=== PATIENT | female | born 1995 | race Caucasian/White ===

== ENCOUNTER 2016-09-12 09:56 | Emergency (ER) | payer SELFPAY ==
[2016-09-12 10:24] VITALS: BP 108/50
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
== END 2016-09-12 11:14 | disposition home or self-care (01) ==
LOC: UCEAST 09:56
DX: J02.0 Streptococcal pharyngitis (principal); R30.0 Dysuria; Z87.440 Personal history of urinary (tract) infections; F17.210 Nicotine dependence, cigarettes, uncomplicated
CPT/HCPCS: 81002; 87086; 87651; 99212; G0463

== ENCOUNTER 2016-09-29 12:49 | Emergency (ER) | payer SELFPAY ==
[2016-09-29 14:18] VITALS: BP 109/67
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
== END 2016-09-29 14:33 | disposition home or self-care (01) ==
LOC: UCEAST 12:49
DX: H10.9 Unspecified conjunctivitis (principal); F17.210 Nicotine dependence, cigarettes, uncomplicated
CPT/HCPCS: 99212; G0463

== ENCOUNTER 2016-11-11 21:02 | Emergency (ER) | payer OTHER ==
[2016-11-11] MEDS ORDERED: Acetaminophen TAB* 325 MG PO ONE (23:51)
[2016-11-12 00:01] VITALS: BP 112/78
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
== END 2016-11-12 01:05 | disposition home or self-care (01) ==
LOC: UCEAST 21:02
DX: S06.0X0A Concussion without loss of consciousness, initial encounter (principal); S16.1XXA Strain of muscle, fascia and tendon at neck level, initial encounter; V49.40XA Driver injured in collision with unspecified motor vehicles in traffic accident, initial encounter; Y93.89 Activity, other specified; Y92.410 Unspecified street and highway as the place of occurrence of the external cause; Z32.02 Encounter for pregnancy test, result negative; F41.9 Anxiety disorder, unspecified; F17.210 Nicotine dependence, cigarettes, uncomplicated
CPT/HCPCS: 70450; 72020; 72125; 81003; 84702; 99212; A9270-GY; G0463

== ENCOUNTER 2017-02-05 18:34 | Emergency (ER) | payer OTHER ==
[2017-02-05] MEDS ORDERED: Ketorolac INJ* 60 MG/2 ML VIAL IM ONE (20:27)
[2017-02-05] MEDS ORDERED: Metoclopramide TAB* 10 MG PO ONE (20:27)
[2017-02-05 20:40] VITALS: BP 106/62
[2017-02-05] MEDS ORDERED: Cyclobenzaprine TAB* 10 MG PO ONE (21:04)
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
== END 2017-02-05 21:11 | disposition home or self-care (01) ==
LOC: UCEAST 18:34
DX: M54.2 Cervicalgia (principal); R11.2 Nausea with vomiting, unspecified; G43.909 Migraine, unspecified, not intractable, without status migrainosus; F17.210 Nicotine dependence, cigarettes, uncomplicated
CPT/HCPCS: 96372; 99212; A9270-GY; G0463; J1885

== ENCOUNTER 2017-02-23 19:25 | Emergency (ER) | payer OTHER ==
[2017-02-23] MEDS ORDERED: Ondansetron INJ* 2 MG/ML VIAL IV ONE (20:01)
[2017-02-23] MEDS ORDERED: NS 0.9% 1000 ML* 1,000 ML IV ONE (20:01)
[2017-02-23] MEDS ORDERED: diPHENhydraMINE IV* 50 MG/ML 1 ml VIAL (BENADRYL) IV ONE (20:01)
[2017-02-23] MEDS ORDERED: Diazepam SYRINGE* 5 MG/ML SYRINGE IV ONE (20:02)
[2017-02-23] MEDS ORDERED: Ketorolac INJ* 30 MG/ML 1 ML VIAL IV PUSH ONE (20:03)
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
[2017-02-23] MEDS ORDERED: Diazepam TAB(*) 5 MG PO ONE (22:53)
[2017-02-23 23:32] VITALS: BP 110/56
== END 2017-02-23 23:12 | disposition home or self-care (01) ==
LOC: ED 19:25
DX: G43.909 Migraine, unspecified, not intractable, without status migrainosus (principal); M62.838 Other muscle spasm; F07.81 Postconcussional syndrome; G44.309 Post-traumatic headache, unspecified, not intractable; Z87.440 Personal history of urinary (tract) infections; F41.9 Anxiety disorder, unspecified; F32.9 Major depressive disorder, single episode, unspecified; F17.210 Nicotine dependence, cigarettes, uncomplicated
CPT/HCPCS: 96361; 96374; 96375; 99282; A9270-GY; J1200; J1885; J2405; J3360

== ENCOUNTER 2017-04-08 03:07 | Emergency (ER) | payer OTHER ==
[2017-04-08] MEDS ORDERED: NS 0.9% 1000 ML* 2,000 ML IV ONE (03:55)
[2017-04-08] MEDS ORDERED: Ondansetron INJ* 2 MG/ML VIAL IV ONE (04:05)
[2017-04-08] MEDS ORDERED: LORazepam INJ* 2 MG/ML 1 ML VIAL IV ONE (04:05)
[2017-04-08] MEDS ORDERED: Ketorolac INJ* 30 MG/ML 1 ML VIAL IV ONE (04:05)
[2017-04-08] MEDS ORDERED: diPHENhydraMINE IV* 50 MG/ML 1 ml VIAL (BENADRYL) IV ONE (04:05)
[2017-04-08 04:49] LABS: EBV Response NO
[2017-04-08 04:55] LABS: Hematocrit 36 % (35-47); Mean Corpuscular HGB Conc 33 g/dl (31-36); Mean Corpuscular Hemoglobin 32 pg (27-31); Mean Corpuscular Volume 96 fL (80-97); Mean Platelet Volume 8 um3 (7.4-10.4); Red Blood Count 3.76 10^6/ul (4.0-5.4); Red Cell Distribution Width 13 % (10.5-15); White Blood Count 6.2 10^3/ul (3.5-10.8)
[2017-04-08 05:07] LABS: Mono Internal Control QC Line Present
[2017-04-08 05:08] LABS: Manual Entry Verification CAR0052
[2017-04-08 05:11] LABS: ALT 15 U/L (7-52); AST 16 U/L (13-39); Albumin 4.1 g/dL (3.2-5.2); Alkaline Phosphatase 25 U/L (34-104); Anion Gap 5 mmol/L (2-11); BUN/Creatinine Ratio 13.7 (8-20); Blood Urea Nitrogen 10 mg/dL (6-24); C Reactive Protein < 1.00 mg/L (< 5.00); CO2 Carbon Dioxide 25 mmol/L (22-32); Calcium 8.7 mg/dL (8.6-10.3); Chloride 106 mmol/L (101-111); EGFR African American 128.2 (>60); EGFR Non-African American 99.7 (>60); Globulin 2.4 g/dL (2-4); Glucose 90 mg/dL (70-100); Potassium 3.5 mmol/L (3.5-5.0); Sodium 136 mmol/L (133-145); Total Protein 6.5 g/dL (6.4-8.9)
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
[2017-04-08 06:56] VITALS: BP 119/75
== END 2017-04-08 07:12 | disposition home or self-care (01) ==
LOC: ED 03:07
DX: M54.2 Cervicalgia (principal); R51 Headache; F17.210 Nicotine dependence, cigarettes, uncomplicated
CPT/HCPCS: 36415; 80053; 84702; 85025; 86140; 86308; 99282; J1200; J1885; J2060; J2405

== ENCOUNTER 2017-08-01 21:54 | Emergency (ER) | payer OTHER ==
[2017-08-01] MEDS ORDERED: diPHENhydraMINE IV* 50 MG/ML 1 ml VIAL (BENADRYL) IV ONE (22:39)
[2017-08-01] MEDS ORDERED: Ketorolac INJ* 30 MG/ML 1 ML VIAL IV PUSH ONE (22:39)
[2017-08-01] MEDS ORDERED: PROCHLORPERAZINE INJ 5 MG/ML 2 ML VIAL IV ONE (22:39)
[2017-08-01] MEDS ORDERED: NS 0.9% 1000 ML* 1,000 ML IV ONE (22:40)
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
[2017-08-01 23:34] LABS: ABS Basophils 0 10^3/ul (0-0.2); ABS Eosinophils 0 10^3/ul (0-0.6); ABS Lymphocytes 2.3 10^3/ul (1.0-4.8); ABS Monocytes 0.5 10^3/ul (0-0.8); ABS Neutrophils 4.8 10^3/ul (1.5-7.7); ABS Nucleated RBC 0 10^3/ul; Eosinophil % 0.2 % (0-6); Hematocrit 36 % (35-47); Hemoglobin 12.3 g/dl (12.0-16.0); Lymphocyte % 30.2 % (25-47); Mean Corpuscular HGB Conc 34 g/dl (31-36); Mean Corpuscular Hemoglobin 32 pg (27-31); Mean Corpuscular Volume 95 fL (80-97); Mean Platelet Volume 8 um3 (7.4-10.4); Nucleated Red Blood Cells % 0; Platelet Count 308 10^3/ul (150-450); Red Blood Count 3.85 10^6/ul (4.0-5.4); Red Cell Distribution Width 13 % (10.5-15); White Blood Count 7.7 10^3/ul (3.5-10.8)
[2017-08-01 23:54] LABS: EGFR Non-African American 108.2 (>60)
[2017-08-02 00:58] VITALS: BP 118/63
== END 2017-08-02 00:55 | disposition home or self-care (01) ==
LOC: ED 21:54
DX: R51 Headache (principal); R11.0 Nausea; F17.210 Nicotine dependence, cigarettes, uncomplicated
CPT/HCPCS: 36415; 80053; 84702; 85025; 96374; 96375; J0780; J1200; J1885

== ENCOUNTER 2017-08-12 17:46 | Emergency (ER) | payer MEDICAID, OTHER ==
[2017-08-12 18:02] VITALS: BP 109/71
--- NOTE | 2017-08-12 18:38 | UC ---
Rico Santana Gabriel, scribed for Faye Jara MD on 08/12/17 at 1832 . Throat Pain/Nasal Roverto HPI - HPI Summary HPI Summary: This patient is a 21 year old F [place] [facility] [place] chief complaint of sinus congestion that began in the beginning of July. The symptoms resolved but returned after she had a migraine and was seen in the ED 10 days ago. The patient rates the pain 7/10 in severity. Patient reports fatigue, cough, sore throat, TA, brown productive cough, pain behind her eyes, and chills. Patient denies ear pain but feels ear congestion. No nausea, vomiting. PT has taken Mucinex and APAP with relief. PT states feels better with shower. Patients medication reviewed during this visit. - History of Current Complaint Chief Complaint: UCRespiratory Stated Complaint: COUGH Time Seen by Provider: 08/12/17 18:10 Hx Obtained From: Patient Hx Last Menstrual Period: 07/20/17 Onset/Duration: Lasting Days - 10, Still Present Severity: Moderate Pain Intensity: 7 Pain Scale Used: 0-10 Numeric Cough: Productive Associated Signs & Symptoms: Positive: Other - fatigue, sinus congestion, cough , sore throat, TA, brown productive cough, pain behind her eyes, chills, - Allergies/Home Medications Allergies/Adverse Reactions: Allergies Allergy/AdvReac Type Severity Reaction Status Date / Time No Known Allergies Allergy Verified 08/12/17 18:02 Home Medications: Home Medications Iud* 08/12/17 [History] LORazepam TAB(*) [Ativan 1 MG TAB (*)] PRN 08/12/17 [History] Phenylephrine-Chlorpheniramine [Alyssa-Peralta Plus Cold &] 1 cap PO PRN 08/12/17 [History] PMH/Surg Hx/FS Hx/Imm Hx Neurological History: Migraine Other History Of: Negative For: HIV, Hepatitis B, Hepatitis C, Anticoagulant Therapy - Surgical History Surgical History: Yes Surgery Procedure, Year, and Place: tongue tied as a - had scar revision in 7th grade X2 - Family History Known Family History: Positive: Hypertension, Diabetes, Other - family hx of kidney stones Negative: Renal Disease, Respiratory Disease, Seizure Disorder Family History: R & N/C - Social History Occupation: Employed Full-time Lives: Dormitory/Roommates Alcohol Use: Occasionally Alcohol Amount: 2-3 times/ week Substance Use Type: None Smoking Status (MU): Former Smoker Type: Cigarettes Amount Used/How Often: 4 CIG/DAY Have You Smoked in the Last Year: Yes Household Exposure Type: Cigarettes - Immunization History Most Recent Influenza Vaccination: none Review of Systems Constitutional: Chills, Fatigue ENT: Sore Throat, Sinus Congestion Respiratory: Cough Neurological: Headache - with eye pain All Other Systems Reviewed And Are Negative: Yes Physical Exam Triage Information Reviewed: Yes Appearance: Well-Appearing, No Pain Distress, Well-Nourished Vital Signs: Initial Vital Signs Temp 99 F 08/12/17 17:56 Pulse 107 08/12/17 17:56 Resp 16 08/12/17 17:56 BP 109/71 08/12/17 17:56 Pulse Ox 99 08/12/17 17:56 Eye Exam: Normal Eyes: Positive: Conjunctiva Clear ENT Exam: Normal ENT: Positive: Hearing grossly normal, Pharynx normal, Nasal congestion, TM dull , Sinus tenderness - maxillary and frontal sinus L>R, Other - + mild fluid left TM no erythema turbinates inflammed and boggy + pnd uvula midline no exudate , no erythema. Negative: Pharyngeal erythema, TMs normal, Tonsillar swelling, Tonsillar exudate Dental Exam: Normal Neck exam: Normal Neck: Positive: Supple, Nontender Respiratory Exam: Normal Respiratory: Positive: Chest non-tender, Lungs clear, Normal breath sounds, No respiratory distress, No accessory muscle use Cardiovascular Exam: Normal Cardiovascular: Positive: RRR, No Murmur, Pulses Normal Abdominal Exam: Normal Abdomen Description: Positive: Nontender, No Organomegaly Musculoskeletal Exam: Normal Neurological Exam: Normal Psychological Exam: Normal Skin Exam: Normal Throat Pain/Nasal Course/Dx - Course Course Of Treatment: pt with progressive sinus congestion, green secretions, cough, fatigue. facial pressure. + fluid left TM. turbinates inflammed and boggy with sinus discomfort. Rx abx, flonase. humidify air. motrin/apap. hydrate. secretion precaution. pt requested diflucan for yeast - Differential Dx/Diagnosis Provider Diagnoses: sinusitis Discharge - Discharge Plan Condition: Stable Disposition: HOME Prescriptions: Amoxicillin PO (*) [Amoxicillin 875 MG (*)] 875 mg PO BID #20 tab Fluconazole [Diflucan 150 MG (NF)] 150 mg PO ONCE #1 tab Fluticasone NASAL * [Flonase *] 2 spray BOTH NARES DAILY #1 spray Patient Education Materials: Sinusitis (ED) Referrals: Pradeep Lopez MD [Primary Care Provider] - Additional Instructions: - Stay well hydrated. Drink plenty of non-alcoholic, non-caffinated beverages - Take antibiotics 2 times a day as prescribed - use nasal spray as instructed - Okay to use over the counter medication for decongestant - After you have been on antibiotics for 2 days - change your toothbrush and your pillowcase. These infections are spread by secrtions - do NOT share eating or drinking utensils - clean items you share with other people such as iphone, computer mouse, TV remote, etc - Alternate ibuprofen (Advil, motrin) 600mg and tylenol eveyry 3 hours for pain or fever. Do NOT take ibuprofen if you are taking Naprosyn - the doctor has prescribed a treatment for yeast infection if you develop this from the antibiotic - humidify the air in the room where you sleep to help with congestion - Call your doctor on Friday to schedule a follow-up appointment. Call your doctor or return with questions or concerns The documentation as recorded by the Rico munoz Gabriel accurately reflects the service I personally performed and the decisions made by , Faye Jara MD.
== END 2017-08-12 18:35 | disposition home or self-care (01) ==
LOC: UCEAST 17:46
DX: J32.9 Chronic sinusitis, unspecified (principal); G43.909 Migraine, unspecified, not intractable, without status migrainosus; Z87.891 Personal history of nicotine dependence
CPT/HCPCS: 99212; G0463

== ENCOUNTER 2017-09-02 21:52 | Emergency (ER) | payer MEDICAID ==
[2017-09-03] MEDS ORDERED: diPHENhydraMINE IV* 50 MG/ML 1 ml VIAL (BENADRYL) IV ONE (01:15)
[2017-09-03] MEDS ORDERED: Ketorolac INJ* 30 MG/ML 1 ML VIAL IV PUSH ONE (01:15)
[2017-09-03] MEDS ORDERED: Ondansetron INJ* 2 MG/ML VIAL IV ONE (01:15)
[2017-09-03] MEDS ORDERED: NS 0.9% 1000 ML* 1,000 ML IV ONE (01:15)
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
[2017-09-03] MEDS ORDERED: Morphine INJ* 2 MG/ML 1 ML SYRINGE (TWO MG - NEW SYRINGE VERSION) IV ONE (02:57)
[2017-09-03 03:03] VITALS: BP 100/54
[2017-09-03] MEDS ORDERED: Morphine INJ* 2 MG/ML 1 ML CARPUJECT IV ONE (04:00)
== END 2017-09-03 03:39 | disposition home or self-care (01) ==
LOC: ED 21:52
DX: G43.909 Migraine, unspecified, not intractable, without status migrainosus (principal); Z87.891 Personal history of nicotine dependence
CPT/HCPCS: 96360; 96361; 96374; 96375; 99284; J1200; J1885; J2270; J2405

== ENCOUNTER 2017-09-24 02:39 | Emergency (ER) | payer OTHER ==
[2017-09-24] MEDS ORDERED: Metoclopramide IV* 5 MG/ML 2 ML VIAL IV SLOW PU ONE (02:55)
[2017-09-24] MEDS ORDERED: Ketorolac INJ* 30 MG/ML 1 ML VIAL IV PUSH ONE (02:55)
[2017-09-24] MEDS ORDERED: diPHENhydraMINE IV* 50 MG/ML 1 ml VIAL (BENADRYL) IV ONE (02:55)
[2017-09-24] MEDS ORDERED: NS 0.9% 1000 ML* 1,000 ML IV ONE (02:56)
[2017-09-24] MEDS ORDERED: LORazepam INJ* 2 MG/ML 1 ML VIAL IV PUSH ONE (02:56)
[2017-09-24 05:00] VITALS: BP 111/74
--- NOTE | 2017-10-14 06:13 | ED ---
Felecia Santana Rebecca, scribed for Kenneth Raymundo MD on 09/24/17 at 0257 . Headache - HPI Summary HPI Summary: Pt is a 21 y/o F who presents to ED c/o TA. 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 Currently, pain is severe, ranked 9/10. 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 Additionally c/o nausea and photophobia. PMHx anxiety, migraines, and depression. Pt takes amitriptyline as a prophylaxis and sumatriptan and Xanax as needed to treat migraines. Tonight, the pt has taken 150 mg Sumatriptan without relief. She was [place] [facility] [place] ago for similar symptoms and her mother reports the pt experiences migraines often. LNMP is now. - History Of Current Complaint Chief Complaint: EDHeadache Stated Complaint: HEADACHE Hx Obtained From: Patient Hx Last Menstrual Period: 07/20/17 Onset/Duration: Started hours ago - 1 hour, Still Present Currently Pain Is: Current Pain Scale(0-10)= - 9/10, Severe Character: Migraine Aggravating Factor: Bright Lights Allevating Factors: Nothing Associated Signs And Symptoms: Nausea Related History: Similar Episode/DX As: - Prior migraines, seen 3 weeks ago - Allergies/Home Medications Allergies/Adverse Reactions: Allergies Allergy/AdvReac Type Severity Reaction Status Date / Time diphenhydramine Allergy Unknown See Comment Verified 09/24/17 03:17 [From Benadryl] PMH/Surg Hx/FS Hx/Imm Hx Endocrine/Hematology History: Denies: Hx Anticoagulant Therapy, Hx Blood Disorders, Hx Diabetes, Hx Thyroid Disease, Hx Anemia, Hx Unexplained Bleeding Cardiovascular History: Denies: Hx Aneurysm, Hx Hypertension, Hx Pacemaker/ICD Respiratory History: Denies: Hx Asthma, Hx Chronic Obstructive Pulmonary Disease (COPD) GI History: Denies: Hx Ulcer History: Reports: Other Problems/Disorders - Recurrent UTI Sensory History: Denies: Hx Hearing Aid Neurological History: Reports: Hx Migraine Psychiatric History: Reports: Hx Anxiety, Hx Depression Denies: Hx Panic Disorder - Surgical History Surgery Procedure, Year, and Place: tongue tied as a - had scar revision in 7th grade X2 Infectious Disease History: No Infectious Disease History: Denies: Hx Hepatitis, Hx Human Immunodeficiency Virus (HIV), Traveled Outside the [place] in Last 30 Days - Family History Known Family History: Positive: Hypertension, Diabetes, Other - family hx of kidney stones Negative: Renal Disease, Respiratory Disease, Seizure Disorder - Social History Alcohol Use: Occasionally Alcohol Amount: 2-3 times/ week Hx Substance Use: No Substance Use Type: Reports: None Hx Tobacco Use: Yes Smoking Status (MU): Former Smoker Type: Cigarettes Amount Used/How Often: 4 CIG/DAY Have You Smoked in the Last Year: Yes Review of Systems Positive: Photophobia Positive: Nausea Positive: Headache All Other Systems Reviewed And Are Negative: Yes Physical Exam - Summary Physical Exam Summary: VITAL SIGNS: Reviewed. GENERAL: ~Patient is a well-developed and nourished female who is in the position on the stretcher. Patient is not in any acute respiratory distress. HEAD AND FACE: No signs of trauma. No ecchymosis, hematomas or skull depressions. No sinus tenderness. EYES: PERRLA, EOMI x 2, No injected conjunctiva, no nystagmus. Photophobia. EARS: Hearing grossly intact. Ear canals and tympanic membranes are within normal limits. MOUTH: Oropharynx within normal limits. NECK: Supple, trachea is midline, no adenopathy, no JVD, no carotid bruit, no c- spine tenderness, neck with full ROM. CHEST: Symmetric, no tenderness at palpation LUNGS: Clear to auscultation bilaterally. No wheezing or crackles. CVS: Regular rate and rhythm, S1 and S2 present, no murmurs or gallops appreciated. EXTREMITIES: FROM in all major joints, no edema, no cyanosis or clubbing. NEURO: Alert and oriented x 3. No acute neurological deficits. Speech is normal and follows commands. SKIN: Dry and warm Triage Information Reviewed: Yes Vital Signs On Initial Exam: Initial Vitals Temp Pulse Resp BP Pulse Ox 97.6 F 69 16 130/60 99 09/24/17 02:41 09/24/17 02:41 09/24/17 02:41 09/24/17 02:41 09/24/17 02:41 Vital Signs Reviewed: Yes Diagnostics - Vital Signs Vital Signs Temp Pulse Resp BP Pulse Ox 09/24/17 02:41 97.6 F 69 16 130/60 99 - Laboratory Lab Statement: Any lab studies that have been ordered have been reviewed, and results considered in the medical decision making process. Re-Evaluation - Re-Evaluation First Eval Re-Evaluation Time: 04:47 Change: Improved Comment: Pt's sx have improved. Discussed D/C plan with the pt who understands and agrees. Headache Course/Dx - Course Assessment/Plan: Pt is a 21 y/o F who presents to ED c/o migraine TA for 1 hour , currently severe, ranked 9/10. 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 Additionally c/o nausea and photophobia. PMHx anxiety, migraines , and depression. Pt takes amitriptyline as a prophylaxis and sumatriptan and Xanax as needed to treat migraines. Tonight, the pt has taken 150 mg Sumatriptan without relief. She was [place] [facility] [place] 3 weeks ago for similar symptoms and her mother reports the pt experiences migraines often. LNMP is now. In the ED course, pt received Toradol, Reglan, Ativan and fluids. She declined Benadryl. Pt will be D/C to home with Dx of migriane with a followup with her PCP. She understands and agrees. Allergy noted. - Diagnoses Provider Diagnoses: Migraine Discharge - Sign-Out/Discharge Documenting (check all that apply): Discharge - Discharge Plan Condition: Stable Disposition: HOME Patient Education Materials: Migraine Headache (ED) Forms: *Work Release Referrals: Pradeep Lopez MD [Primary Care Provider] - 3 Days Additional Instructions: RETURN TO EMERGENCY DEPARTMENT FOR ANY NEW OR WORSENING SYMPTOMS - Billing Disposition and Condition Condition: STABLE Disposition: HOME The documentation as recorded by the Felecia munoz Rebecca accurately reflects the service I personally performed and the decisions made by me, Kenneth Raymundo MD.
== END 2017-09-24 05:01 | disposition home or self-care (01) ==
LOC: ED 02:39
DX: G43.909 Migraine, unspecified, not intractable, without status migrainosus (principal); Z87.891 Personal history of nicotine dependence
CPT/HCPCS: 96374; 96375; 99283; J1885; J2060; J2765

== ENCOUNTER 2017-12-08 07:56 | Emergency (ER) | payer OTHER ==
--- OUTSIDE RECORDS SUMMARY | 2017-12-08 08:44 | XMS REPORT ---
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 Heart Rate 80 /min Body Temperature 98.6 F Height 61 inches 5'1" Weight 104.00 lb BMI (Body Mass Index) 19.6 kg/m2 Body Mass Index Percentile 38 % Weight Percentile 17th Height Percentile 11 % 02/11/2011 BP Systolic 100 mmHg BP Diastolic 70 mmHg Heart Rate 68 /min Body Temperature 99.0 F Height 61 inches 5'1" Weight 108.00 lb BMI (Body Mass Index) 20.4 kg/m2 Body Mass Index Percentile 48 % Weight Percentile 26th Height Percentile 11 % 12/25/2010 BP Systolic 96 mmHg BP Diastolic 60 mmHg Heart Rate 68 /min Respiratory Rate 15 /min Height 61 inches 5'1" Weight 105.00 lb BMI (Body Mass Index) 19.8 kg/m2 Body Mass Index Percentile 41 % Weight Percentile 20th Height Percentile 11 % 12/20/2010 BP Systolic 106 mmHg BP Diastolic 70 mmHg Heart Rate 64 /min Height 61 inches 5'1" Weight 105.00 lb BMI (Body Mass Index) 19.8 kg/m2 Body Mass Index Percentile 42 % Weight Percentile 21st Height Percentile 11 % 12/04/2010 BP Systolic 100 mmHg BP Diastolic 54 mmHg Heart Rate 84 /min Height 61 inches 5'1" Weight 104.00 lb BMI (Body Mass Index) 19.6 kg/m2 Body Mass Index Percentile 39 % Weight Percentile 19th Height Percentile 12 % 06/25/2010 BP Systolic 110 mmHg BP Diastolic 72 mmHg Heart Rate 68 /min Body Temperature 98.6 F Height 61 inches 5'1" Weight 110.00 lb BMI (Body Mass Index) 20.8 kg/m2 Body Mass Index Percentile 57 % Weight Percentile 35th Height Percentile 12 % 05/03/2010 BP Systolic 110 mmHg BP Diastolic 60 mmHg Heart Rate 64 /min Body Temperature 99.4 F Respiratory Rate 16 /min Height 61 inches 5'1" Weight 110.00 lb BMI (Body Mass Index) 20.8 kg/m2 Body Mass Index Percentile 58 % Weight Percentile 37th Height Percentile 13 % Right Visual Acuity Distance 20/40 Left Visual Acuity Distance 20/20 04/12/2010 BP Systolic 110 mmHg BP Diastolic 70 mmHg Heart Rate 68 /min Body Temperature 99.0 F Weight 111.00 lb Weight Percentile 39th 08/15/2009 BP Systolic 90 mmHg BP Diastolic 50 mmHg Heart Rate 72 /min Weight 110.00 lb Weight Percentile 44th Height Percentile 3 % 08/09/2009 BP Systolic 104 mmHg BP Diastolic 70 mmHg Heart Rate 84 /min Weight 110.00 lb Weight Percentile 44th 04/29/2009 BP Systolic 108 mmHg BP Diastolic 58 mmHg Body Temperature 98.2 F Height 61 inches 5'1" Weight 102.00 lb BMI (Body Mass Index) 19.3 kg/m2 Body Mass Index Percentile 46 % Weight Percentile 32nd Height Percentile 17 % 04/25/2009 BP Systolic 106 mmHg BP Diastolic 80 mmHg Heart Rate 72 /min Body Temperature 98.8 F Height 61 inches 5'1" Weight 104.00 lb BMI (Body Mass Index) 19.6 kg/m2 Body Mass Index Percentile 51 % Weight Percentile 36th Height Percentile 17 % 04/03/2009 Heart Rate 88 /min Body Temperature 98.6 F Weight 104.00 lb Weight Percentile 37th 03/14/2009 BP Systolic 90 mmHg BP Diastolic 60 mmHg Body Temperature 98.4 F Weight 102.00 lb Weight Percentile 34th 10/03/2008 BP Systolic 102 mmHg BP Diastolic 62 mmHg Heart Rate 84 /min Body Temperature 97.2 F Height 61 inches 5'1" Weight 101.00 lb BMI (Body Mass Index) 19.1 kg/m2 Body Mass Index Percentile 48 % Weight Percentile 38th 09/20/2008 BP Systolic 102 mmHg BP Diastolic 60 mmHg Heart Rate 76 /min Body Temperature 99.7 F Height 61 inches 5'1" Weight 102.00 lb BMI (Body Mass Index) 19.3 kg/m2 Body Mass Index Percentile 51 % Weight Percentile 40th Height Percentile 23 % 08/16/2008 BP Systolic 96 mmHg BP Diastolic 64 mmHg Heart Rate 64 /min Weight 102.00 lb Weight Percentile 41st 05/03/2008 Body Temperature 98.7 F Weight 110.00 lb Weight Percentile 61st 03/31/2008 BP Systolic 104 mmHg BP Diastolic 60 mmHg Heart Rate 72 /min Body Temperature 99.4 F Weight 100.00 lb Weight Percentile 43rd 01/26/2008 BP Systolic 90 mmHg BP Diastolic 60 mmHg Heart Rate 72 /min Height 61 inches 5'1" Weight 96.00 lb BMI (Body Mass Index) 18.1 kg/m2 Body Mass Index Percentile 41 % Weight Percentile 38th Height Percentile 35 % 12/08/2007 BP Systolic 90 mmHg BP Diastolic 60 mmHg Heart Rate 76 /min Body Temperature 99.4 F Height 61 inches 5'1" Weight 99.00 lb BMI (Body Mass Index) 18.7 kg/m2 Body Mass Index Percentile 50 % Weight Percentile 46th Height Percentile 38 % 10/13/2007 BP Systolic 92 mmHg BP Diastolic 60 mmHg Body Temperature 98.3 F Weight 102.00 lb Weight Percentile 55th 12/24/2006 BP Systolic 116 mmHg BP Diastolic 70 mmHg Heart Rate 78 /min Height 60.25 inches 5'0.25" Weight 88.00 lb BMI (Body Mass Index) 17.0 kg/m2 Body Mass Index Percentile 34 % Weight Percentile 42nd Height Percentile 60 % 04/03/2006 BP Systolic 96 mmHg BP Diastolic 60 mmHg Heart Rate 64 /min Body Temperature 98.4 F Weight 91.00 lb Weight Percentile 64th 12/20/2005 BP Systolic 92 mmHg BP Diastolic 50 mmHg Heart Rate 60 /min Height 59 inches 4'11" Weight 89.00 lb BMI (Body Mass Index) 18.0 kg/m2 Body Mass Index Percentile 58 % Weight Percentile 66th Height Percentile 79 % 08/02/2005 Body Temperature 99.1 F Weight 82.00 lb Weight Percentile 59th 04/05/2005 BP Systolic 102 mmHg BP Diastolic 58 mmHg Heart Rate 80 /min Body Temperature 98.4 F Weight 77.00 lb Weight Percentile 55th 11/13/2004 BP Systolic 82 mmHg BP Diastolic 50 mmHg Heart Rate 88 /min Height 55.5 inches 4'7.50" Weight 74.00 lb BMI (Body Mass Index) 16.9 kg/m2 Body Mass Index Percentile 52 % Weight Percentile 57th Height Percentile 70 % 08/28/2004 BP Systolic 118 mmHg BP Diastolic 80 mmHg Heart Rate 84 /min Weight 68.00 lb Weight Percentile 45th 04/03/2004 Body Temperature 99.0 F Weight 65.00 lb Weight Percentile 46th 12/07/2003 BP Systolic 98 mmHg BP Diastolic 58 mmHg Heart Rate 80 /min Body Temperature 97.8 F Height 51 inches 4'3" Weight 62.00 lb BMI (Body Mass Index) 16.8 kg/m2 Weight Percentile 45th Height Percentile 30 % 08/30/2003 Body Temperature 98.5 F Weight 58.00 lb Weight Percentile 38th 01/11/2003 BP Systolic 108 mmHg BP Diastolic 60 mmHg Heart Rate 80 /min Height 49.75 inches 4'1.75" Weight 52.00 lb BMI (Body Mass Index) 14.8 kg/m2 Weight Percentile 30th Height Percentile 40 % Right Visual Acuity Distance 20/20 Left Visual Acuity Distance 20/20 Color Passed 09/15/2002 Body Temperature 97.6 F Weight 53.00 lb Weight Percentile 60th 06/25/2002 Body Temperature 98.7 F Weight 50.00 lb Weight Percentile 47th 05/11/2002 Body Temperature 99.9 F Weight 50.00 lb Weight Percentile 47th 01/05/2002 BP Systolic 110 mmHg BP Diastolic 60 mmHg Heart Rate 84 /min Height 46.5 inches 3'10.50" Weight 50.00 lb BMI (Body Mass Index) 16.6 kg/m2 Weight Percentile 47th Height Percentile 31 % Right Visual Acuity Distance 20/20 12/23/2000 BP Systolic 102 mmHg BP Diastolic 70 mmHg Heart Rate 88 /min Height 44 inches 3'8" Weight 44.00 lb BMI (Body Mass Index) 16.0 kg/m2 Height Percentile 29 % 12/26/1999 BP Systolic 100 mmHg BP Diastolic 60 mmHg Height 41.75 inches 3'5.75" Weight 38.00 lb BMI (Body Mass Index) 15.9 kg/m2 Height Percentile 31 % Results Test Date Test Result H/L Range Note Comp Metabolic Panel 08/01/2017 Sodium 136 mmol/L 133-145 Potassium 3.2 mmol/L Low 3.5-5.0 Chloride 99 mmol/L Low 101-111 Co2 Carbon Dioxide 30 mmol/L 22-32 Anion Gap 7 mmol/L 2-11 Glucose 97 mg/dL 70-100 Blood Urea Nitrogen 15 mg/dL 6-24 Creatinine 0.68 mg/dL 0.51-0.95 BUN/Creatinine Ratio 22.1 High 8-20 Calcium 9.5 mg/dL 8.6-10.3 Total Protein 7.0 g/dL 6.4-8.9 Albumin 4.2 g/dL 3.2-5.2 Globulin 2.8 g/dL 2-4 Albumin/Globulin Ratio 1.5 1-3 Total Bilirubin 0.40 mg/dL 0.2-1.0 Alkaline Phosphatase 31 U/L Low 34-104 Alt 34 U/L 7-52 Ast 39 U/L 13-39 Egfr Non- 108.2 >60 Egfr 139.1 >60 1 Laboratory test finding 08/01/2017 HCG < 0.60 mIU/mL 2 CBC With Differential/Platelet 06/27/2017 WBC 6.0 x10E3/uL 3.4-10.8 3 RBC 3.80 x10E6/uL 3.77-5.28 3 Hemoglobin 12.0 g/dL 11.1-15.9 3 Hematocrit 36.5 % 34.0-46.6 3 MCV 96 fL 79-97 3 MCH 31.6 pg 26.6-33.0 3 MCHC 32.9 g/dL 31.5-35.7 3 RDW 13.2 % 12.3-15.4 3 Platelets 272 x10E3/uL 150-379 3 Neutrophils 63 % Not Estab. 3 Lymphs 29 % Not Estab. 3 Monocytes 6 % Not Estab. 3 Eos 1 % Not Estab. 3 Basos 1 % Not Estab. 3 Immature Cells TNP 3 Neutrophils (Absolute) 3.8 x10E3/uL 1.4-7.0 3 Lymphs (Absolute) 1.8 x10E3/uL 0.7-3.1 3 Monocytes(Absolute) 0.3 x10E3/uL 0.1-0.9 3 Eos (Absolute) 0.0 x10E3/uL 0.0-0.4 3 Baso (Absolute) 0.0 x10E3/uL 0.0-0.2 3 Immature Granulocytes 0 % Not Estab. 3 Immature Grans (Abs) 0.0 x10E3/uL 0.0-0.1 3 NRBC TNP 3 Hematology Comments: TNP 3 Metabolic Panel (14), Comprehensive 06/27/2017 Glucose, Serum 70 mg/dL 65 -99 3 BUN 11 mg/dL 6-20 3 Creatinine, Serum 1.01 mg/dL High 0.57-1.00 3 eGFR If NonAfricn Am 79 mL/min/1.73 >59 3 eGFR If Africn Am 91 mL/min/1.73 >59 3 BUN/Creatinine Ratio 11 9-23 3 Sodium, Serum 140 mmol/L 134-144 3 Potassium, Serum 4.5 mmol/L 3.5-5.2 3 Chloride, Serum 99 mmol/L 96-106 3 Carbon Dioxide, Total 23 mmol/L 18-29 3 Calcium, Serum 9.6 mg/dL 8.7-10.2 3 Protein, Total, Serum 7.5 g/dL 6.0-8.5 3 Albumin, Serum 4.8 g/dL 3.5-5.5 3 Globulin, Total 2.7 g/dL 1.5-4.5 3 A/G Ratio 1.8 1.2-2.2 3 Bilirubin, Total 0.7 mg/dL 0.0-1.2 3 Alkaline Phosphatase, S 32 IU/L Low 39-117 3 Ast (Sgot) 42 IU/L High 0-40 3 Alt (SGPT) 19 IU/L 0-32 3 Laboratory test finding 11/12/2016 Poc , Urine Negative Negative 4 Poc Urinalysis 11/12/2016 Poc Glucose, Urine Negative Negative Poc Bilirubin, Urine Negative Negative Poc Ketone, Urine Negative Negative Poc Specific [place], Urine 1.020 1.010-1.030 Poc Blood, Urine Trace-intact Negative Poc pH, Urine 7.5 5-9 Poc Protein, Urine Negative Negative Poc Urobilinogen, Urine 0.2 Negative Poc Nitrite, Urine Negative Negative Poc Leukocytes, Urine Negative Negative Poc Color, Urine Light yellow Poc Clarity, Urine Cloudy 5 Laboratory test 09/12/2016 Urine Culture And SEE RESULT BELOW 6, 7 finding Sensitivities Laboratory test 09/12/2016 Rapid Strep Molecular POSITIVE Negative 8 finding Urinalysis Profile 10/26/2015 Urine Color Yellow Urine Appearance Clear Urine Specific [place] 1.011 1.010-1.030 Urine pH 6.0 5-9 Urine Urobilinogen Negative Negative Urine Ketones 1+ Negative Urine Protein Negative Negative Urine Leukocytes Negative Negative Urine Blood Negative Negative Urine Nitrite Negative Negative Urine Bilirubin Negative Negative Urine Glucose Negative Negative Laboratory test finding 10/26/2015 Lactic Acid 0.6 mmol/L 0.5-2.0 9 Comp Metabolic Panel 10/26/2015 Sodium 133 mmol/L 133-145 Potassium 3.7 mmol/L 3.5-5.0 Chloride 101 mmol/L 101-111 Co2 Carbon Dioxide 25 mmol/L 22-32 Anion Gap 7 mmol/L 2-11 Glucose 85 mg/dL 70-100 Blood Urea Nitrogen 11 mg/dL 6-24 Creatinine 0.71 mg/dL 0.51-0.95 BUN/Creatinine Ratio 15.5 8-20 Calcium 9.2 mg/dL 8.6-10.3 Total Protein 6.9 g/dL 6.4-8.9 Albumin 4.2 g/dL 3.2-5.2 Globulin 2.7 g/dL 2-4 Albumin/Globulin Ratio 1.6 1-3 Total Bilirubin 0.60 mg/dL 0.2-1.0 Alkaline Phosphatase 33 U/L Low 34-104 Alt 15 U/L 7-52 Ast 16 U/L 13-39 Egfr Non- 105.0 >60 Egfr 135.0 >60 10 CBC Auto Diff 10/26/2015 White Blood Count 7.3 10^3/uL 3.5-10.8 Red Blood Count 3.64 10^6/uL Low 4.0-5.4 Hemoglobin 11.5 g/dL Low 12.0-16.0 Hematocrit 35 % 35-47 Mean Corpuscular Volume 97 fL 80-97 Mean Corpuscular Hemoglobin 32 pg High 27-31 Mean Corpuscular HGB Conc 32 g/dL 31-36 Red Cell Distribution Width 12 % 10.5-15 Platelet Count 243 10^3/uL 150-450 Mean Platelet Volume 9 um3 7.4-10.4 Abs Neutrophils 5.2 10^3/uL 1.5-7.7 Abs Lymphocytes 1.7 10^3/uL 1.0-4.8 Abs Monocytes 0.3 10^3/uL 0-0.8 Abs Eosinophils 0.1 10^3/uL 0-0.6 Abs Basophils 0 10^3/uL 0-0.2 Abs Nucleated RBC 0 10^3/uL Granulocyte % 70.6 % 38-83 Lymphocyte % 23.5 % Low 25-47 Monocyte % 4.7 % 1-9 Eosinophil % 0.9 % 0-6 Basophil % 0.3 % 0-2 Nucleated Red Blood Cells % 0.1 Laboratory test finding 10/26/2015 Magnesium 1.8 mg/dL Low 1.9-2.7 Amylase 13 U/L Low 29-103 Lipase 16 U/L 11.0-82.0 Creatine Kinase 155 U/L 10-223 C Reactive Protein < 1.00 mg/L < 5.00 11 HCG < 0.60 mIU/mL 12 Comp. Metabolic Panel (14) 10/10/2015 Glucose, Serum 87 mg/dL 65-99 13 BUN 8 mg/dL 6-20 13 Creatinine, Serum 0.70 mg/dL 0.57-1.00 13 eGFR If NonAfricn Am 125 mL/min/1.73 >59 13 eGFR If Africn Am 144 mL/min/1.73 >59 13 BUN/Creatinine Ratio 11 8-20 13 Sodium, Serum 142 mmol/L 134-144 13 Potassium, Serum 3.9 mmol/L 3.5-5.2 13 Chloride, Serum 103 mmol/L 97-108 13 Carbon Dioxide, Total 24 mmol/L 18-29 13 Calcium, Serum 9.3 mg/dL 8.7-10.2 13 Protein, Total, Serum 7.4 g/dL 6.0-8.5 13 Albumin, Serum 4.4 g/dL 3.5-5.5 13 Globulin, Total 3.0 g/dL 1.5-4.5 13 A/G Ratio 1.5 1.1-2.5 13 Bilirubin, Total 0.3 mg/dL 0.0-1.2 13 Alkaline Phosphatase, S 30 IU/L Low 39-117 13 Ast (Sgot) 28 IU/L 0-40 13 Alt (SGPT) 42 IU/L High 0-32 13 Laboratory test finding 10/10/2015 TSH 0.340 uIU/mL Low 0.450-4.500 13 Thyroxine (T4) Free, Direct, S 1.57 ng/dL 0.82-1.77 13 Triiodothyronine,Free,Serum 3.5 pg/mL 2.0-4.4 13 Written Authorization See Comment: 13, 14 Urine Culture Routine 08/08/2015 Urine Culture, Routine Final report 15 , 16 Result 1 No growth 15, 17 Ua - Micro ([facility]) 08/07/2015 Appearance yellow Color clear Glucose, Urine (Fma/CMC/CTX) neg Bilirubin neg Ketones neg SP Grav 1.020 Blood neg PH 7.0 Protein neg Urobil 0.2 Nitrite neg Leukocytes (Fma/CMC/Centrex) neg Hyaline - /Lpf Granular - /Lpf WBC (Fma,Centrex) 2-5 RBC - Mucus (Fma/CBC/Centrex) - /Lpf Epith few /Lpf Bacteria +1 /Hpf Amorphous (Fma/CMC/Centrex) - /Lpf Crystals, Fluid (Fma/CMC/CTX) - Z#Comments - Ua - Micro (a) 06/25/2013 Appearance CLEAR Color OTHER Glucose NEG Bilirubin SMALL Icto Test Not Done Ketones TRACE SP Grav >=1.030 Blood MODERATE PH 6.0 Protein SSA:NEG Urobil 0.2 Nitrite NEG Leukocytes (Fma/CMC/Centrex) NEG Hyaline - /Lpf Granular - /Lpf WBC (Fma,Centrex) 10-20 RBC 10-20 Mucus - /Lpf Epith FEW /Lpf Bacteria 1+ /Hpf Amorphous - /Lpf Crystals, Fluid (Fma/CMC/CTX) - Z#Comments - Laboratory test finding 06/25/2013 Urine Culture (Fma/CMC) 10,000CFU/mL Rapid Strep A 05/13/2013 Rapid Strep A (SEE NOTE) 18 Comp Metabolic Panel 05/13/2013 Sodium 137 mmol/L 133-145 Potassium 3.3 mmol/L Low 3.5-5.0 Chloride 101 mmol/L 101-111 Co2 Carbon Dioxide 27.0 mmol/L 22-32 Anion Gap 9.0 mmol/L 2-11 Glucose 89 mg/dL 70-100 Blood Urea Nitrogen 7 mg/dL 6-24 Creatinine 0.80 mg/dL 0.50-1.40 BUN/Creatinine Ratio 8.8 8-20 Calcium 9.5 mg/dL 8.1-9.9 Total Protein 7.8 g/dL 6.2-8.1 Albumin 4.5 g/dL 3.6-5.4 Globulin 3.3 g/dL 2-4 Albumin/Globulin Ratio 1.4 1-3 Total Bilirubin 1.2 mg/dL 0.4-1.5 Alkaline Phosphatase 36 U/L Low 50-176 Alt 26 U/L 14-54 Ast 24 U/L 12-42 Egfr Non- 93.4 >60 Egfr 120.1 >60 19 Laboratory test 05/13/2013 C Reactive Protein 1.6 mg/dL High Less than 0.5 finding Laboratory test 05/13/2013 Monospot Negative Negative finding CBC Auto Diff 05/13/2013 White Blood Count 13.1 10^3/uL High 4.8-10.8 Red Blood Count 4.12 10^6/uL 4.0-5.4 Hemoglobin 13.0 g/dL 12.0-16.0 Hematocrit 39 % 35-47 Mean Corpuscular Volume 95 fL 80-97 Mean Corpuscular Hemoglobin 32 pg High 27-31 Mean Corpuscular HGB Conc 33 g/dL 31-36 Red Cell Distribution Width 13 % 10.5-15 Platelet Count 229 10^3/uL 150-450 Mean Platelet Volume 8 um3 7.4-10.4 Abs Neutrophils 11.2 10^3/uL High 1.5-7.7 Abs Lymphocytes 1.2 10^3/uL 1.0-4.8 Abs Monocytes 0.6 10^3/uL 0-0.8 Abs Eosinophils 0.1 10^3/uL 0-0.6 Abs Basophils 0 10^3/uL 0-0.2 Abs Nucleated RBC 0 10^3/uL Granulocyte % 85.9 % High 38-83 Lymphocyte % 9.0 % Low 25-47 Monocyte % 4.2 % 1-9 Eosinophil % 0.6 % 0-6 Basophil % 0.3 % 0-2 Nucleated Red Blood Cells % 0 Laboratory test finding 10/14/2012 [facility] [place] Lab Test ua,uam,culture Ebv Acute Infection Abs 05/26/2012 Ebv Ab Vca, IgM 0.8 AI 0.0-0.8 20 Ebv Early Antigen Ab, IgG <0.2 AI 0.0-0.8 21 Ebv Ab Vca, IgG >8.0 AI High 0.0-0.8 22 Ebv Nuclear Antigen Ab, IgG >8.0 AI High 0.0-0.8 23 Interpretation: SEE NOTE 24 Anti Viral AB Screen 05/26/2012 HIV 1/O/2 Abs-Index Value <1.00 < 1.00 25 HIV 1/O/2 Abs, Qual Non Reactive 26 Laboratory test finding 05/26/2012 TSH 1.67 mIU/L 0.50-6.00 CBC Manual Diff-Fma 05/11/2012 WBC 9.3 3.6-9.6 RBC 3.87 Low 3.90-5.70 Hemoglobin (Fma/CMC/CTX) 10.8 g/dL Low 12.1 - 17.2 Hematocrit (Fma/CMC/CTX) 34.5 % Low 36.1 - 50.3 Mean Corpuscular Vol 89 82.2-97.4 Mean Corpuscular Hemoglobin 28.0 27.6-33.3 Mean Corpuscular Hemo Concen 31.4 Low 32.0-36.0 Platelets 212 10^3/ul 150-400 RDW 13.0 11.6-13.7 Mean Platelet Volume 7.0 6.5-11.0 Neutrophil 74 Band 3 Lymphocytes 17 Monocyte 3 Eosinophils 2 Atypical Lymph 1 Hypochrom slight Comment see comment 27 Influenza A&B 05/11/2012 Influenza A NEG Influenza B NEG Laboratory test finding 05/11/2012 Monospot (Fma/Centrex) NEG Quickstrep NEG Negative Throat - Beta Strep Fma negative@48hrs CBC No Diff 03/10/2012 White Blood Count 4.8 CUMM 4.8-10.8 Red Cell Count 3.87 CUMM Low 4.2-5.4 Hemoglobin 11.6 g/dL Low 12.0-16.0 Hematocrit 35 % 35-47 Mean Corpuscular Volume 90 um3 79-97 Mean Corpuscular Hemoglob 30 pg 27-31 Mean Corpuscular HGB Cone 33 g/dL 32-36 Redcell Distribution WDTH 16 % High 10.5-15 Platelet Count 226 CUMM 150-450 Mean Platelet Volume 9.1 um3 7.4-10.4 Urine Culture 03/10/2012 M <SEE 28 & Sensitivi NOTE> Laboratory test 03/10/2012 Hemoglobin A1c 5.2 % Less Than 29 finding 6.0 Bacterial Vaginosis Smear <SEE NOTE> 30 Vaginal Dna Probe 03/10/2012 M <SEE 31 NOTE> GC/Chlamydia Aptima 03/10/2012 M <SEE 32 NOTE> Laboratory test 02/01/2012 Quickstrep neg Negative finding Throat - Beta Strep Fma NEG@48HRS Ebv Acute Infection Abs 06/24/2011 Ebv Ab Vca, IgM 1.1 AI High 0.0-0.8 33 Ebv Early Antigen Ab, IgG <0.2 AI 0.0-0.8 34 Ebv Ab Vca, IgG >8.0 AI High 0.0-0.8 35 Ebv Nuclear Antigen Ab, IgG >8.0 AI High 0.0-0.8 36 Interpretation: SEE NOTE 37 Lyme Western Blot Ser 06/24/2011 IgG P93 Ab. Absent IgG P66 Ab. Absent IgG P58 Ab. Absent IgG P45 Ab. Absent IgG P41 Ab. Present IgG P39 Ab. Absent IgG P30 Ab. Absent IgG P28 Ab. Absent IgG P23 Ab. Absent IgG P18 Ab. Absent Lyme IgG WB Interp. Negative 38 IgM P41 Ab. Present IgM P39 Ab. Absent IgM P23 Ab. Absent Lyme IgM WB Interp. Negative 39 Laboratory test 06/24/2011 Monospot (Fma/Centrex) NEGATIVE finding Laboratory test 06/24/2011 Antinuclear Abs, Ifa Negative 40 finding Lyme Igg/M W/RFX West 06/24/2011 Lyme IgG/IgM Ab <0.91 index 0.00- 0.90 41 Lyme Disease Ab, Quant, IgM 1.73 index High 0.00-0.90 42 Lyme Ab IgM Interp., Eia Positive CBC No Diff 06/17/2011 White Blood Count 7.0 CUMM 4.8-10.8 Red Cell Count 4.12 CUMM Low 4.2-5.4 Hemoglobin 12.3 g/dL 12.0-16.0 Hematocrit 37 % 35-47 Mean Corpuscular Volume 89 um3 79-97 Mean Corpuscular Hemoglob 30 pg 27-31 Mean Corpuscular HGB Cone 34 g/dL 32-36 Redcell Distribution WDTH 15 % 10.5-15 Platelet Count 266 CUMM 150-450 Mean Platelet Volume 8.4 um3 7.4-10.4 Laboratory test finding 06/17/2011 Erythrocyte Sed Rate 15 MM/HR 0-15 Urinalysis W/Microscopic 03/17/2011 Ua Color YELLOW Yellow Appearance-Urine CLOUDY Clear Specific [place]-Ur 1.005 Low 1.010-1.030 Esterase-Urine 3+ Negative Nitrite NEGATIVE Negative [id number] NEGATIVE Negative Protein-Urine 2+ Negative PH-Urine 7.0 5-9 Blood-Urine 3+ Negative Ketones-Urine NEGATIVE Negative Bilirubin-Ur NEGATIVE Negative Glucose-Urine NEGATIVE Negative WBC-Urine TNTC 0-5 RBC-Urine 0-2 0-2 Epith Cells-Ur RARE None Bacteria-Urine 1+ None Amorphous Sed-U TRACE None Urine Culture & 03/17/2011 Urine Culture ESCHERICHIA COLI 43 Sensitivi Sensitivi Sensitivities For Urine 03/17/2011 Ampicillin >=32 Culture Amikacin <=2 Ciprofloxacin <=0.25 Ceftriaxone <=1 Cefazolin <=4 Nitrofurantoin 64 Gentamicin <=1 Imipenem <=1 Levofloxacin <=0.12 Trimeth-Sulfa >=320 Ceftazidime <=1 Tigecycline <=0.5 Piperacillin/Tazobactam KB 27 CBC Auto Diff 03/17/2011 White Blood Count 10.2 CUMM 4.8-10.8 Red Cell Count 4.02 CUMM Low 4.2-5.4 Hemoglobin 12.6 g/dL 12.0-16.0 Hematocrit 37 % 35-47 Mean Corpuscular Volume 93 um3 79-97 Mean Corpuscular Hemoglob 31 pg 27-31 Mean Corpuscular HGB Cone 34 g/dL 32-36 Redcell Distribution WDTH 13 % 10.5-15 Platelet Count 317 CUMM 150-450 Mean Platelet Volume 7.9 um3 7.4-10.4 Gran % 63.8 % 38-83 Lymph % 27.6 % 25-47 Mononuclear % 4.2 % 1-9 Eosinophil % 3.4 % 0-6 Basophil % 1.0 % 0-2 Abs Lymphs 2.8 1.0-4.8 Abs Mononuclear 0.4 0-0.8 Absolute Neutrophil Count 6.5 1.5-7.7 Abs Eosinophils 0.3 0-0.6 Abs Basophils 0.1 0-0.2 Laboratory test finding 03/17/2011 (HCG) Serum NEGATIVE Negative 44 Comp Metabolic Panel 03/17/2011 Sodium 137 mmol/L 135-145 Potassium 3.6 mmol/L 3.5-5.0 Chloride 101 mmol/L 101-111 Co2 (Carbon Dioxide) 27.0 mmol/L 22-32 Anion Gap 9.0 mmol/L 2-11 45 Glucose 93 mg/dL 70-100 BUN 4 mg/dL Low 6-24 Creatinine 0.7 mg/dL 0.50-1.40 One Over Creatinine 1.42 BUN/Creatinine Ratio 5.7 Low 8-20 Calcium 9.3 mg/dL 8.1-9.9 Total Protein 7.2 GM/DL 6.2-8.1 Albumin 4.4 GM/DL 3.6-5.4 Globulin 2.8 GM/DL 2-4 Albumin/Globulin Ratio 1.6 1-3 Bilirubin Total 0.7 mg/dL 0.4-1.5 46 Alkaline Phosphatase 42 U/L 40-122 Alt (SGPT) 17 U/L 14-54 Ast (Sgot) 23 U/L 12-42 Ua - Micro (Fma) 12/25/2010 Appearance CLEAR Color YELLOW Glucose NEG Bilirubin NEG Ketones NEG SP Grav 1.020 Blood MENSES PH 7.0 Protein NEG Urobil 0.2 Nitrite NEG Leukocytes (Fma/CMC/Centrex) TRACE Hyaline <pending> /Lpf Granular <pending> /Lpf WBC (Fma,Centrex) 6-8 RBC 4-5 Mucus <pending> /Lpf Epith FEW /Lpf Bacteria 2+ /Hpf Amorphous SMALL AMT /Lpf Crystals, Fluid (Fma/CMC/CTX) <pending> Z#Comments <pending> CBC Auto Diff 11/27/2010 White Blood Count 5.6 CUMM 4.8-10.8 Red Cell Count 3.96 CUMM Low 4.2-5.4 Hemoglobin 12.1 g/dL 12.0-16.0 Hematocrit 37 % 35-47 Mean Corpuscular Volume 92 um3 79-97 Mean Corpuscular Hemoglob 31 pg 27-31 Mean Corpuscular HGB Cone 33 g/dL 32-36 Redcell Distribution WDTH 14 % 10.5-15 Platelet Count 224 CUMM 150-450 Mean Platelet Volume 8.1 um3 7.4-10.4 Gran % 60.6 % 38-83 Lymph % 30.7 % 25-47 Mononuclear % 5.8 % 1-9 Eosinophil % 1.0 % 0-6 Basophil % 1.9 % 0-2 Abs Lymphs 1.7 1.0-4.8 Abs Mononuclear 0.3 0-0.8 Absolute Neutrophil Count 3.4 1.5-7.7 Abs Eosinophils 0.1 0-0.6 Abs Basophils 0.1 0-0.2 Comp Metabolic Panel 11/27/2010 Sodium 137 mmol/L 135-145 Potassium 4.1 mmol/L 3.6-5.2 Chloride 105 mmol/L 101-111 Co2 (Carbon Dioxide) 25.0 mmol/L 22-32 Anion Gap 7.0 mmol/L 2-11 47 Glucose 80 mg/dL 70-100 BUN 10 mg/dL 6-24 Creatinine 0.70 mg/dL 0.50-1.40 One Over Creatinine 1.40 BUN/Creatinine Ratio 14.3 8-20 Calcium 8.9 mg/dL 8.1-9.9 Total Protein 6.6 GM/DL 6.2-8.1 Albumin 3.9 GM/DL 3.6-5.4 Globulin 2.7 GM/DL 2-4 Albumin/Globulin Ratio 1.4 1-3 Bilirubin Total 0.8 mg/dL 0.4-1.5 48 Alkaline Phosphatase 35 U/L Low 130-390 Alt (SGPT) 13 U/L Low 14-54 Ast (Sgot) 23 U/L 12-42 Laboratory test finding 11/27/2010 Troponin-I 0 NG/ML 0-0.06 49 TSH 0.71 MIU/ML 0.34-5.60 Ua - Micro (Fma) 05/03/2010 Appearance CLEAR Color YELLOW Glucose NEG Bilirubin NEG Ketones NEG SP Grav >=1.030 Blood NEG PH 7.0 Protein NEG Urobil 0.2 Nitrite NEG Leukocytes (Fma/CMC/Centrex) TRACE Hyaline - /Lpf Granular - /Lpf WBC (Fma,Centrex) 0-1 RBC 0-1 Mucus - /Lpf Epith RARE /Lpf Bacteria - /Hpf Amorphous - /Lpf Crystals, Fluid (Fma/CMC/CTX) - Z#Comments - Urine Culture & 01/05/2010 Urine Culture Sensitivi SN2 50 Sensitivi Comp Stat 09/29/2008 Sodium 137 mmol/L 135-145 Potassium 4.0 mmol/L 3.6-5.2 Chloride 103 mmol/L 101-111 Co2 (Carbon Dioxide) 24.0 mmol/L 22-32 Anion Gap 10.0 mmol/L 2-11 51 Glucose 93 mg/dL 70-100 52 BUN 8 mg/dL 6-24 Creatinine 0.70 mg/dL 0.50-1.40 One Over Creatinine 1.40 BUN/Creatinine Ratio 11.4 8-20 Calcium 9.2 mg/dL 8.1-9.9 53 Total Protein 7.5 GM/DL 6.2-8.1 Albumin 4.3 GM/DL 3.6-5.4 Globulin 3.2 GM/DL 2-4 Albumin/Globulin Ratio 1.3 1-3 Bilirubin Total 0.5 mg/dL 0.4-1.5 Alkaline Phosphatase 62 U/L Low 130-390 Alt (SGPT) 14 U/L 14-54 Ast (Sgot) 26 U/L 12-42 CBC With Manual Diff Stat 09/29/2008 White Blood Count 8.2 CUMM 4.8-10.8 Red Cell Count 3.97 CUMM Low 4.0-5.2 Hemoglobin 11.7 g/dL 11.5-15.5 Hematocrit 34 % Low 35-45 Mean Corpuscular Volume 86 um3 79-97 Mean Corpuscular Hemoglob 29 pg 27-31 Mean Corpuscular HGB Cone 34 g/dL 32-36 Redcell Distribution WDTH 14 % 10.5-15 Platelet Count 270 CUMM 150-450 Mean Platelet Volume 7.7 um3 7.4-10.4 Polysegmented Neutrophil 60 % 38-83 Band Neutrophil 8 % 0-8 Lymphocyte 25 % 25-47 Monocyte 7 % 0-13 Absolute Neutrophil Count 5.5 Anisocytosis SLIGHT Monospot Stat 09/29/2008 Monospot NEGATIVE Negative Aerobic Culture 09/29/2008 Aerobic Culture NG5 54 Bottle Bottle Laboratory test 09/29/2008 Anaerobic Culture NG24 55 finding Bottle Rapid Strep A 09/28/2008 Rapid Strep A The credit verification clerk 56 <SEE NOTE> Laboratory test 09/28/2008 Throat-Beta Strep LATE 57 finding Culture Throat-Beta Strept 07/19/2008 Throat-Beta Strep NF 58 Culture Urine Culture 06/02/2008 Urine Culture NF1 59 Sensitivity Sensitivi Laboratory test 03/31/2008 Quickstrep NEGATIVE Negative finding Throat - Beta Strep Fma NEGATIVE @ 48HRS Ua - Non Micro (Fma) 01/26/2008 Appearance CLEAR Color YELLOW Glucose, Urine (Fma/CMC/CTX) NEG Bilirubin NEG Ketones NEG SP Grav 1.020 Blood NEG PH 6.0 Protein NEG Urobil 0.2 Nitrite NEG Leukocytes (Fma/CMC/Centrex) NEG Ua - Non Micro (Fma) 12/24/2006 Appearance CLEAR Color LT YELLOW Glucose NEG Bilirubin NEG Ketones TRACE SP Grav 1.020 Blood 3+-MENSES PH 7.0 Protein SSA NEG Urobil 0.2 Nitrite NEG Leukocytes (Fma/CMC/Centrex) NEG Laboratory test finding 04/03/2006 Throat - Beta Strep Fma NEGATIVE Ua - Non Micro (Fma) 12/20/2005 Appearance CLOUDY Color YELLOW Glucose NEGATIVE Bilirubin NEGATIVE Ketones NEGATIVE SP Grav >=1.030 Blood NEGATIVE PH 6.5 Protein NEGATIVE Urobil 1.0 Nitrite NEGATIVE Leukocytes (Fma/CMC/Centrex) NEGATIVE Laboratory test finding 08/02/2005 Quickstrep NEGATIVE Negative Throat Culture NEGATIVE Laboratory test finding 02/09/2005 [facility] THROAT-BETA STREP See Image Report Ua - Non Micro ([facility]) 02/12/2004 Color YELLOW Appearance CLEAR SP Grav 1.010 1.010-1.030 Esterase - Negative Nitrite NEG Negative Urobil NEG Negative Protein NEG Negative PH 5 5-9 Blood NEG Negative Ketones NEG Negative Bilirubin, Micro NEG Negative Glucose NEG Negative Laboratory test finding 02/12/2004 Leukocytes 1+ Ua - Micro ([facility] 12/07/2003 Appearance CLEAR Color LT YELLOW Glucose NEG Bilirubin NEG Ketones NEG SP Grav 1.020 Blood NEG PH 7.0 Protein NEG Urobil 1.0 Nitrite NEG Leukocytes TRACE Hyaline - /Lpf Granular - /Lpf WBC'S 12-15 RBC'S - Mucus SM /Lpf Epith FEW Bacteria RARE Amorphous - /Lpf Crystals - /Lpf Comments - Ua - Non Micro ([facility] 01/11/2003 Appearance CLEAR/YELLOW Glucose NEG Bilirubin NEG Ketones NEG SP Grav >=1.030 Blood NEG PH 5.5 Protein SSA NEG Urobil 0.2 Nitrite NEG Leukocytes NEG Ua - Micro ([facility] 06/25/2002 Appearance CLOUDY YELLOW Glucose NEGATIVE Bilirubin NEGATIVE Ketones NEGATIVE SP Grav 1.015 Blood NEGATIVE PH 8.5 Protein SSA NEGATIVE Urobil 0.2 Nitrite NEGATIVE Leukocytes NEGATIVE Hyaline - /Lpf Granular - /Lpf WBC'S - RBC'S - Mucus - /Lpf Epith - Bacteria - Amorphous - /Lpf Crystals - /Lpf Comments - Laboratory test finding 06/25/2002 Throat Culture NEGATIVE Laboratory test finding 07/27/2001 Throat - Beta Strep POSITIVE Final CBC With Diff ([facility]) 12/23/2000 WBC 8.5 3.6-9.6 Lymphocytes 38.0 % 20.5 - 51.1 Monocytes 4.4 % 1.7 - 9.3 Granulocytes 57.6 % 42.2 - 75.2 Lymphocytes 3.2 10^3/uL 0.7 - 4.9 Monocytes 0.4 10^3/uL 0.1 - 0.9 Granulocytes 4.9 10^3/uL 1.5 - 7.2 RBC 3.81 Low 3.90-5.70 Hemoglobin 11.6 g/dL Low 12.1 - 17.2 Hematocrit 33.8 % Low 36.1 - 50.3 Mean Corpuscular Vol 88.7 82.2-97.4 Mean Corpuscular Hemaglobin 30.5 27.6-33.3 Mean Corpuscular Hemo Concen 34.4 33.0-34.8 RDW 11.1 Low 11.6-13.7 Platelets 278 10^3/ul 150-400 Mean Platelet Volume 7.5 7.4-10.4 PT + PTT No Therpy/Unkn 12/23/2000 PTT CANCELLED seconds PT (No Therapy/Unknown) CANCELLED seconds Inr CANCELLED Ua - Non Micro (Fma New) 12/26/1999 Appearance CLEAR YELLOW SP Grav 1.020 Esterase - Nitrite - pH 6.0 Protein - Glucose - Ketones - Urobil - Bilirubin - Blood - 1 Because ethnic data is not always readily available, this report includes an eGFR for both -Americans and non- Americans. The National Kidney Disease Education Program (NKDEP) does not endorse the use of the MDRD equation for patients that are not between the ages of 18 and 70, are , have extremes of body size, muscle mass, or nutritional status, or are non- or non-. According to the National Kidney Foundation, irrespective of diagnosis, the stage of the disease is based on the level of kidney function: Stage Description GFR(mL/min/1.73 m(2)) 1 Kidney damage with normal or decreased GFR 90 2 Kidney damage with mild decrease in GFR 60-89 3 Moderate decrease in GFR 30-59 4 Severe decrease in GFR 15-29 5 Kidney failure <15 (or dialysis) 2 <5.0 Negative 5.0 - 25.0 Indeterminate (Repeat testing recommended after 72 hours) >25.0 Positive Perimenopausal women can display HCG levels of up to 20 mIU/mL 3 [id number] 4 Respiratory Coordinator: [id number] If is still suspected, please repeat test after 48 to 72 hours. 5 Respiratory Coordinator: [id number] SEE RESULT BELOW Name: SAUD KILLIAN : [address]: Fredo Sanchez MD Acct: [id number] Unit: [id number] AGE: 20 Location: [facility] Re09/12/16 SEX: F Status: DEP ER SPEC: [id number] BRITTNEY: 09/12/16-[address]: Brianda Ragsdale NP REQ: [id number] RECD: 09/12/16 STATUS: PILY COE DR: Fredo Lopez MD _ SOURCE: URINE SPDESC: ORDERED: Urine Culture COMMENTS: [id number] Procedure Result Reported Site Urine Culture Final 09/13/16- 1243 ML No Growth (<1,000 CFU/mL) * ML - MAIN LAB ([facility]) . END OF REPORT * ML=Testing performed at Main Lab DEPARTMENT OF PATHOLOGY, [facility] [place], [place] [address] Jam Dominguez M.D. Director [facility] # [id number] Respiratory Coordinator: [id number] ARMIDA HART 9 [facility] Severe Sepsis and Septic Shock Management Bundle Measure requires all lactic acids initially measuring >2.0mmol/L be repeated. 10 Because ethnic data is not always readily available, this report includes an eGFR for both -Americans and non- Americans. The National Kidney Disease Education Program (NKDEP) does not endorse the use of the MDRD equation for patients that are not between the ages of 18 and 70, are , have extremes of body size, muscle mass, or nutritional status, or are non- or non-. According to the National Kidney Foundation, irrespective of diagnosis, the stage of the disease is based on the level of kidney function: Stage Description GFR(mL/min/1.73 m(2)) 1 Kidney damage with normal or decreased GFR 90 2 Kidney damage with mild decrease in GFR 60-89 3 Moderate decrease in GFR 30-59 4 Severe decrease in GFR 15-29 5 Kidney failure <15 (or dialysis) 11 Acute inflammation: >10.00 12 <5.0 Negative 5.0 - 25.0 Indeterminate (Repeat testing recommended after 72 hours) >25.0 Positive Perimenopausal women can display HCG levels of up to 20 mIU/mL 13 1 sst 14 Written Authorization Received. Authorization received from SIGNATURE ON FILE 10-13-2015 Logged by Emerson Roberts 15 SRC: URINE tube 16 Source of Specimen: URINE 17 Source of Specimen: URINE 18 RUN DATE: 05/13/13 [facility] LAB LIVE PAGE 1 RUN TIME: [address] [place] [address] Specimen Inquiry Name: SAUD KILLIAN : [address]: Alexis Keen DO Acct: [id number] Unit: [id number] AGE: 17 Location: ED Re05/13/13 SEX: F Status: REG ER SPEC: [id number] BRITTNEY: 05/13/[address]: Korey DACOSTA REQ: [id number] RECD: 05/13/13 STATUS: PILY COE DR: [facility] Pradeep Lopez MD _ SOURCE: THROAT SPDESC: ORDERED: Rapid Strep A Procedure Result Verified Site Rapid Strep A Final 05/13/13- 2231 ML Organism 1 POSITIVE STREP GROUP A Antigen testing by enzyme immunoassay. The credit verification clerk and regulatory agencies both recommend that a throat culture for beta strep be performed if a Rapid Group A Strep assay yields a negative result. Therefore a culture will be automatically performed on all negative samples. END OF REPORT * ML=Testing performed at Main Lab DEPARTMENT OF PATHOLOGY, [address] [place] [address] Jam Dominguez M.D. Director [facility] Permit #[id number] 19 Because ethnic data is not always readily available, this report includes an eGFR for both -Americans and non- Americans. The National Kidney Disease Education Program (NKDEP) does not endorse the use of the MDRD equation for patients that are not between the ages of 18 and 70, are , have extremes of body size, muscle mass, or nutritional status, or are non- or non-. According to the National Kidney Foundation, irrespective of diagnosis, the stage of the disease is based on the level of kidney function: Stage Description GFR(mL/min/1.73 m(2)) 1 Kidney damage with normal or decreased GFR 90 2 Kidney damage with mild decrease in GFR 60-89 3 Moderate decrease in GFR 30-59 4 Severe decrease in GFR 15-29 5 Kidney failure <15 (or dialysis) 20 Negative <0.9 Equivocal 0.9 - 1.0 Positive >1.0 21 Negative <0.9 Equivocal 0.9 - 1.0 Positive >1.0 22 Negative <0.9 Equivocal 0.9 - 1.0 Positive >1.0 23 Negative <0.9 Equivocal 0.9 - 1.0 Positive >1.0 24 EBV Interpretation Chart . Interpretation VCA-IgM EA-IgG VCA-IgG NA-ABS . Susceptible - - - - Acute Infection + +or- +or- - Convalescent Phase +or- +or- + + Chronic or Reactivated - + + +or- Old Infection - - +or- + + Antibody Present - Antibody Absent 25 Index Value: Specimen reactivity relative to the negative cutoff. 26 Negative: Non-reactive by ICMA Positive: Repeatedly reactive by ICMA. Refer to Western Blot confirmatory test for final interpretation. . Physician should securities counselor the patient about result significance. Patient information should be kept strictly confidential. 27 Few ovalocytes. Platelets appear normal on smear. 28 RUN DATE: 03/12/12 [facility] NMI LIVE PAGE 1 RUN TIME: 1122 Specimen Inquiry RUN USER: INTERFACE Name: SAUD KILLIAN Accsofia#: [id number] Status: [facility] CLI Re03/10/12 Age/Sex: 16/F Unit#: [id number] Location: : [birth year] SPEC #: [id number] BRITTNEY: 03/10/12 STATUS: PILY REQ #: [id number] RECD: 03/10/12-[address] [facility] [address]: Ronnie Haynes DO SOURCE: URINE ENTR: 03/10/12-[address]: John WILLINGHAM,Pradeep [facility]: ORDERED: URINE C S QUERIES: SPECIMEN DESCRIPTION: URINE, CLEAN CATCH ACT WKST: UR 03/12/12 #2 Procedure Result Verified Site > URINE CULTURE SENSITIVI Final -1121 ML FINAL: NO GROWTH DAY 2 (<1,000 CFU/mL) ML - [facility] Permit #[id number] [address] [place] [address] DEPARTMENT OF PATHOLOGY, [address] [place] [address] [facility] Permit #[id number] Jam Dominguez M.D. Director Carol Martinez M.D. Licensed Final Expense Agents 29 THERAPEUTIC TARGET FOR THE TREATMENT OF DIABETES MELLITUS PATIENTS IS <7% HBA1C, AND IN SELECTIVE PATIENTS <6.0%. PLEASE REFER TO [place] [employer] DIABETIC CARE GUIDELINES FOR FURTHER INFORMATION. 30 RUN DATE: 03/11/12 [facility] NMI LIVE PAGE 1 RUN TIME: 718 Specimen Inquiry RUN USER: INTERFACE Name: SAUD KILLIAN#: [id number] Status: DEP CLI Re03/10/12 Age/Sex: 16/F Unit#: [id number] Location: [facility]. : [birth year] SPEC #: [id number] BRITTNEY: 03/10/12 STATUS: COMP REQ #: [id number] RECD: 03/10/12-[address] [facility] [address]: Ronnie Haynes DO SOURCE: CERVICAL ENTR: 03/10/12-[address]: John WILLINGHAM,Pradeep [facility]: ORDERED: BV SMEAR ACT WKST: GS 03/11/12 #1 Procedure Result Verified Site > BACTERIAL VAGINOSIS SMEAR Final -0719 ML POLYS MODERATE LACTOBACILLUS Many GARDNERELLA None MOBILUNCUS None SMEAR INTERPRETATION Bacterial Vaginosis Not Likely [facility] Permit #[id number] [address] [place] [address] DEPARTMENT OF PATHOLOGY, [address] [place] [address] [facility] Permit #[id number] Jono Banegas M.D. Licensed Final Expense Agents 31 RUN DATE: 03/11/12 [facility] NMI LIVE PAGE 1 RUN TIME: 1103 Specimen Inquiry RUN USER: INTERFACE Name: SAUD KILLIAN Status: DEP CLI Re03/10/12 Age/Sex: 16/F Unit#: [id number] Location: : 94 SPEC #: [id number] BRITTNEY: 03/10/12 STATUS: COMP REQ #: [id number] RECD: 03/10/12-[address] [facility] [address]: Ronnie Haynes DO SOURCE: VAGINAL ENTR: 03/10/12-[address]: Pradeep Lopez MD [facility]: ORDERED: AFFIRM ACT WKST: AFFIRM 03/11/12 #1 Procedure Result Verified Site > VAGINAL DNA PROBE Final -1103 ML TRICHOMONAS NEGATIVE GARDNERELLA NEGATIVE AMIE SPP NEGATIVE The presence of G. vaginalis, although suggestive, is not diagnostic for bacterial vaginosis. Results should be interpreted in conjunction with other clinical and laboratory data available. Women with vaginal discharge should be evaluated for risk factors of cervicitis and pelvic inflammatory disease, toxic shock syndrome (S.aureus), and if present, evaluated for organisms not included in this assay such as N. gonorrhoeae, C. trachomatis, Mobiluncus, Mycoplasma and/or Prevotella. Mixed infections may occur. The performance of this test on patient specimens collected during or immediately after antimicrobial therapy is unknown. The presence or absence of Amie species, G. vaginalis or T. vaginalis cannot be used as a test for therapeutic success or failure. [facility] Permit #[id number] [address] [place] [address] DEPARTMENT OF PATHOLOGY, [address] [place] [address] [facility] Permit #[id number] Jam Dominguez M.D. Director Carol Martinez M.D. Licensed Final Expense Agents 32 RUN DATE: 03/13/12 [facility] NMI LIVE PAGE 1 RUN TIME: 1454 Specimen Inquiry RUN USER: INTERFACE Name: SAUD KILLIAN Status: DEP CLI Re03/10/12 Age/Sex: 16/F Unit#: [id number] Location: [facility] : [birth year] SPEC #: [id number] BRITTNEY: 03/10/12 STATUS: PILY REQ #: [id number] RECD: 03/10/12-[address]: Ronnie Haynes DO SOURCE: ENDOCERVIX ENTR: 03/10/12-[address]: Pradeep Lopez MD SPDESC: ORDERED: GC/CHL APTIMA ACT WKST: GCCHL 03/13/12 #1 Procedure Result Verified Site > CHLAMYDIA TRACHOMATIS RNA Final -1454 ML NEGATIVE FOR CHLAMYDIA TRACHOMATIS rRNA A negative result does not preclude the presence of a C.trachomatis or N.gonorrhoeae infection because results are dependent on adequate specimen collection, absence of inhibitors, and sufficient rRNA to be detected. Test results may be affected by improper specimen collection, improper specimen storage, technical error, or specimen mixup. Limitations of the Procedure: The Aptima Combo 2 Assay is not intended for the evaluation of suspected sexual abuse or for other medico-legal indications. For those patients for whom a false positive result may have adverse psychosocial impact, the CDC recommends retesting by a method using an alternate technology. Therapeutic failure or success cannot be determined with the Aptima Combo 2 Assay since nucleic acid may persist following appropriate antimicrobial therapy. Results from the APTIMA Combo 2 Assay should be interpreted in conjunction with other laboraotry and clinical data available to the clinician. Performance characteristics for detecting C. trachomatis and N. gonorrhoeae are derived from high prevalence populations. Positive results in low prevalence populations should be interpreted carefully with the understanding that the likelihood of a false positive may be higher than a true positive. DEPARTMENT OF PATHOLOGY, [address] [place] [address] [facility] Permit #[id number] Jono Banegas M.D. Licensed Final Expense Agents RUN DATE: 03/13/12 [facility] NMI LIVE PAGE 2 RUN TIME: 2614 Specimen Inquiry RUN USER: INTERFACE Name: SAUD KILLIAN#: [id number] Status: DEP CLI Re03/10/12 Age/Sex: 16/F Unit#: [id number] Location: [facility] : 94 -- -- CONTINU ED Procedure Result Verified Site > GC (N. GONORRHOEAE) RNA Final -1454 ML NEGATIVE FOR NEISSERIA GONORRHOEAE rRNA A negative result does not preclude the presence of a C.trachomatis or N.gonorrhoeae infection because results are dependent on adequate specimen collection, absence of inhibitors, and sufficient rRNA to be detected. Test results may be affected by improper specimen collection, improper specimen storage, technical error, or specimen mixup. Limitations of the Procedure: The Aptima Combo 2 Assay is not intended for the evaluation of suspected sexual abuse or for other medico-legal indications. For those patients for whom a false positive result may have adverse psychosocial impact, the [facility] recommends retesting by a method using an alternate technology. Therapeutic failure or success cannot be determined with the Aptima Combo 2 Assay since nucleic acid may persist following appropriate antimicrobial therapy. Results from the APTIMA Combo 2 Assay should be interpreted in conjunction with other laboraotry and clinical data available to the clinician. Performance characteristics for detecting C. trachomatis and N. gonorrhoeae are derived from high prevalence populations. Positive results in low prevalence populations should be interpreted carefully with the understanding that the likelihood of a false positive may be higher than a true positive. [facility] Permit #[id number] [address] [place] [address] DEPARTMENT OF PATHOLOGY, [address] [place] [address] [facility] Permit #[id number] Jam Dominguez M.D. Director Carol Martinez M.D. Licensed Final Expense Agents 33 Negative <0.9 Equivocal 0.9 - 1.0 Positive >1.0 34 Negative <0.9 Equivocal 0.9 - 1.0 Positive >1.0 35 Negative <0.9 Equivocal 0.9 - 1.0 Positive >1.0 36 Negative <0.9 Equivocal 0.9 - 1.0 Positive >1.0 37 EBV Interpretation Chart . Interpretation VCA-IgM EA-IgG VCA-IgG NA-ABS . Susceptible - - - - Acute Infection + +or- +or- - Convalescent Phase +or- +or- + + Chronic or Reactivated - + + +or- Old Infection - - +or- + + Antibody Present - Antibody Absent 38 Positive: 5 of the following Borrelia-specific bands: 18,23,28,30,39,41,45,58, 66, and 93. Negative: No bands or banding patterns which do not meet positive criteria. 39 Note: An equivocal or positive EIA result followed by a negative Western Blot result is considered NEGATIVE. An equivocal or positive EIA result followed by a positive Western Blot is considered POSITIVE by the CDC. . Positive: 2 of the following bands: 23,39 or 41 Negative: No bands or banding patterns which do not meet positive criteria. Criteria for positivity are those recommended by CDC/ASTPHLD. p23=Osp C, n88=piohlwaml . Note: Sera from individuals with the following may cross react in the [place] Western Blot assays: other spirochetal diseases (periodontal disease, leptospirosis, relapsing fever, yaws, and pinta); connective autoimmune (Rheumatoid Arthritis and Systemic Lupus Erythematosus and also individuals with Antinuclear Antibody); other infections ([place] Spotted Fever; Jose-Oliveira Virus, and Cytomegalovirus). . 40 Negative <1:80 Borderline 1:80 Positive >1:80 41 Negative <0.91 Equivocal 0.91 - 1.09 Positive >1.09 Note: The CDC currently advises that Western blot testing be performed following all equivocal or positive EIA results. Final diagnosis should include appropriate clinical findings and a positive EIA which is also positive by Western blot. 42 Negative <0.91 Equivocal 0.91 - 1.09 Positive >1.09 . Note: IgM levels may peak at 3-6 weeks post infection, then gradually decline. FDA currently advises that Western Blot testing be performed following all equivocal or positive EIA results. Final diagnosis should include appropriate clinical findings and a positive EIA which is also positive by Western Blot. 43 50^25-50,000 ORGANISMS/ML (MODERATE)^CCU 44 If is still suspected, please repeat test after 48 to 72 hours. . 45 Anion gap measurement may be of limited value in the presence of any alkalosis, especially in a combined acid base disorder. . 46 A metabolite of Naproxen, O-desmethylnaproxen, has been shown to interfere with the Jendrassik-Leadore method for measuring total bilirubin. Samples from patients who have taken Naproxen have shown spurious elevation in total bilirubin levels. 47 Anion gap measurement may be of limited value in the presence of any alkalosis, especially in a combined acid base disorder. . 48 A metabolite of Naproxen, O-desmethylnaproxen, has been shown to interfere with the Jendrassik-Leadore method for measuring total bilirubin. Samples from patients who have taken Naproxen have shown spurious elevation in total bilirubin levels. 49 New Reference Range and Interpretation effective 04/16/2002 TnI (ng/ml) INTERPRETATION Less Than 0.06 ng/mL NOT SUPPORTIVE OF DIAGNOSIS OF [place] 0.06 - 0.50 ng/ml INDETERMINATE: SUGGEST SERIAL STUDIES IF CLINICALLY INDICATED. Greater than 0.5 ng/mL CONSISTENT WITH DIAGNOSIS OF [place] . 50 SCANT NORMAL URETHRAL OR PERINEAL VITOR 51 Anion gap measurement may be of limited value in the presence of any alkalosis, especially in a combined acid base disorder. . 52 Note change in reference range as of 03/03/08. The change was based on recommendations from the [place] [employer]. 53 Please note change in reference range effective 07 . 54 NO GROWTH AFTER 5 DAYS 55 PRELIMINARY: NO GROWTH DAY 1 56 The credit verification clerk and regulatory agencies both recommend that a throat culture for beta strep be performed if a Rapid Group A Strep assay yields a negative result. Therefore a culture will be automatically performed on all negative samples. N^NEGATIVE FOR GROUP A STREP BY ENZYME IMMUNOASSAY^STREPA 57 CULTURE UNDER INCUBATION 58 NEGATIVE FOR GROUP A BETA STREPTOCOCCUS 59 SPECIMEN CONTAINS NORMAL URETHRAL OR PERINEAL VITOR AND DOES NOT SUGGEST URINARY TRACT INFECTION Procedures Date CPT Code Description Status 10/28/2017 49159 Brief Emotional/Behav Assessment W/ Scoring Doc Per Completed Standard Inst 03/14/2009 39198 Destruction-1 Beign Lesion Completed Encounters Type Date Location Provider CPT E/M Dx Office Visit 11/25/2017 2:30p Main Office Shwetha Lerma, [facility] [address] G47.00 F41.9 F32.9 F50.81 Z71.41 R51 Office Visit 11/04/2017 4:30p Main Office Shwetha Lerma, [facility] 32604 G47.00 F41.9 F32.9 Office Visit 10/28/2017 8:15p Main Office Shwetha Lerma, [facility] 38508 F41.9 G47.00 F50.81 Z71.41 Office Visit 09/29/2017 7:00p Main Office Mariaelena Bangura, [place] [address] B37.0 B37.3 Office Visit 06/27/2017 2:00p [place] [address] B37.0 N76.0 Office Visit 05/17/2016 10:30a Main Office Linda Jimenez, [facility] 63143 F90.0 B37.0 Office Visit 01/25/2016 3:15p Northeast Office Linda Jimenez, [facility] 53365 H10.33 Office Visit 10/27/2015 2:45p Main Office Linda Jimenez, [facility] 68214 F41.1 B37.0 Office Visit 10/10/2015 1:30p Main Office Shwetha Jacobsonbhart, [facility] 11200 F41.9 Office Visit 08/29/2015 9:40a Northeast Office Pradeep Lopez M.D. 48114 F41.9 Office Visit 08/07/2015 7:30p Main Office Linda Jimenez, [facility] 39918 N39.0 Office Visit 07/24/2015 6:45p Main Office Linda Jimenez [facility] 80655 F41.1 Office Visit 12/07/2014 11:00a Main Office Linda Jimenez, [facility] 14434 300.00 V25.8 Office Visit 05/19/2014 4:15p Northeast Office Linda Jimenez [facility] 94608 372.00 Office Visit 11/05/2013 1:30p Main Office Samanta Rosario, [employer] 65934 372.00 465.9 Office Visit 09/02/2013 6:15p Main Office Shwetha Lerma, [facility] 83357 616.10 Office Visit 06/25/2013 3:30p Main Office Linda Jimenez, [facility] 84740 599.0 112.0 Office Visit 04/29/2013 11:15a [facility] Office Linda Jimenez, [facility] 80318 300.00 Office Visit 02/15/2013 10:00a Main Office Samanta Rosario, [employer] 02668 465.9 372.00 300.00 Office Visit 11/19/2012 6:00p Main Office Shwetha Lerma, [facility] 02928 V04.89 Office Visit 11/18/2012 1:00p Main Office Linda Jimenez, [facility] 41395 300.00 311 Office Visit 09/17/2012 12:15p Northeast Office Odalys Damico np-C 83982 112.0 300.00 Office Visit 06/22/2012 6:00p Main Office Linda Jimenez, [facility] 98406 300.00 Office Visit 05/26/2012 11:00a [facility] Ady Oneil M.D. 76040 780.79 Office Visit 05/11/2012 4:30p [facility] Ady Oneil M.D. 67113 462 Office Visit 02/01/2012 10:00a Main Office Linda Jimenez, [facility] 89989 477.9 Office Visit 01/10/2012 11:15a Main Office Linda Jimenez, [facility] 63112 300.00 Office Visit 10/31/2011 2:30p [facility] Linda Jimenez, [facility] 82196 V20.2 Office Visit 06/24/2011 9:00a Main Office Pradeep Lopez M.D. 82050 719.49 Office Visit 05/22/2011 2:10p Main Office Pradeep Lopez M.D. 08318 782.1 112.1 Office Visit 02/21/2011 10:30a [facility] Linda De Guzmanrer, [facility] 81238 300.00 Office Visit 02/11/2011 1:45p Main Office Linda Jimenez [facility] 23221 300.00 Office Visit 12/25/2010 2:10p Main Office Kevin Bazan M.D. 61748 599.0 112.1 Office Visit 12/20/2010 1:45p [facility] Linda Jimenez [facility] 30704 300.00 Office Visit 12/04/2010 3:10p [facility] Pradeep Lopez M.D. 55579 785.1 Office Visit 05/03/2010 8:00p Main Office Emre Plummer M.D. 97973 V70.3 785.2 782.1 V04.81 v04.81 V05.4 v05.4 791.7 Office Visit 04/12/2010 3:10p [facility] Jenelle Monroe M.D. 62133 477.9 Office Visit 08/15/2009 3:00p [facility] Pradeep Lopez M.D. 04308 719.47 Office Visit 08/09/2009 6:40p Main Office Pradeep Lopez M.D. 60382 719.47 Office Visit 04/29/2009 11:00a Main Office Ady Oneil M.D. 93143 465.9 Office Visit 04/25/2009 3:15p [facility] Office Subha Love 06753 465.9 477.9 Office Visit 04/03/2009 9:30a [facility] Office Ady Oneil M.D. 69744 465.9 Office Visit 03/14/2009 4:00p [facility] Office Subha Love 07820 078.12 Office Visit 10/03/2008 11:20a [facility] Office Brianna Lee M.D. 00943 465.9 Office Visit 09/20/2008 4:20p [facility] Pradeep Lopez M.D. 57334 558.9 626.2 Office Visit 05/03/2008 4:20p [facility] Pradeep Lopez M.D. 36479 782.1 Office Visit 03/31/2008 3:30p [facility] Office Lindakrishan Jimenez [facility] 02337 462 477.9 Office Visit 01/26/2008 1:20p [facility] Pradeep Lopez M.D. 28987 V04.89 V20.2 Office Visit 12/08/2007 3:15p [facility] Dinorah PainterDavey 17705 465.9 Office Visit 10/13/2007 1:20p [facility] Pradeep Lopez M.D. 77643 784.0 Office Visit 12/24/2006 6:20p Main Office Pradeep Lopez M.D. 85750 V05.8 V20.2 Office Visit 04/03/2006 2:10p [facility] Kevin Bazan M.D. 82102 462 477.9 Office Visit 12/20/2005 2:40p [facility] Pradeep Lopez M.D. 52629 V20.2 V70.0 Office Visit 08/02/2005 2:00p [facility] Pradeep Lopez M.D. 16463 463 Office Visit 04/05/2005 4:10p Main Office Pradeep Lopez M.D. 60200 078.10 Office Visit 11/13/2004 2:20p [facility] Pradeep Lopez M.D. 29235 V20.2 Office Visit 08/28/2004 1:30p [facility] Odalys DamicoJanine 26267 372.00 Office Visit 04/03/2004 2:00p [facility] Pradeep Lopez M.D. 43678 692.9 Office Visit 02/14/2004 2:30p [facility] Office Dinorah Patiencemartha elias 85946 486 Office Visit 12/07/2003 2:40p Main Office Pradeep Lopez M.D. 92468 V70.3 Office Visit 08/30/2003 2:00p [facility] Linda Jimenez [employer] 85189 110.9 Office Visit 01/11/2003 11:20a [facility] Pradeep Lopez M.D. 03179 V20.2 Office Visit 09/15/2002 2:20p Main Office Pradeep Lopez M.D. 31676 784.0 995.3 Office Visit 06/25/2002 10:00a [facility] Pradeep Lopez M.D. 40925 789.07 462 Office Visit 05/11/2002 10:45a [facility] Subha Love 84455 462 Office Visit 01/05/2002 2:40p [facility] Pradeep Lopez M.D. 93315 Office Visit 12/23/2000 4:10p [facility] Pradeep Lopez M.D. 18434 Plan of Care Future Appointment(s):01/07/2018 2:30 pm - [facility] at [facility] Sqgsdz4102/17/2018 3:30 pm - [facility] at [facility] Ybcetm8112/03/2017 - [facility]AN[facility] VitaleF32.9 Major depressive disorder, single episode, xsaqsoayraiW22.9 Anxiety disorder, shfcnxjlilfI90.00 Insomnia, bxhijugbrqkE10.81 Binge eating paltlvysY18 GucwmxskE88.41 Alcohol abuse counseling and surveillance of lffijfalnH54.019 Migraine w/o aura, intractable, without status migrainosusNew Medication:Diflucan 200 mgZ00.00 Encntr for general adult medical exam w/o abnormal findingsAllComments:~B_~U_Medication Management~b_~u_ Patient Understands medications he 's taking? Yes No Are there Barriers to Adherence? Yes No Has the patient been asked about herbal supplements and therapies, and OTC meds? Yes No ~B_~U_ Care Plan~b_~u_1. Patient has been queried about patient's goals/preferences and functional/lifestyle goals at relevant visits. If relevant, describe: improve mental health2. Treatment goals as explained to the patient: above3. Are there barriersto meeting treatment goals? Yes No If Yes, please describe:4. Self-Management goals as described to the patient: Yes No
--- OUTSIDE RECORDS SUMMARY | 2017-12-08 08:46 | XMS REPORT ---
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 Office Visit 10/28/2017 8:15p Main Office BLANCA Vitale 31524 F41.9 G47.00 F50.81 Z71.41 Office Visit 09/29/2017 7:00p Main Office Mariaelena Bangura, [employer] 72760 B37.0 B37.3 Office Visit 06/27/2017 2:00p Main Office Mariaelena Bangura, [employer] 48937 B37.0 N76.0 Office Visit 05/17/2016 10:30a Main Office Linda Jimenez, [facility] 00133 F90.0 B37.0 Office Visit 01/25/2016 3:15p [facility] Linda Jimenez, [facility] 32854 H10.33 Office Visit 10/27/2015 2:45p Main Office Linda Jimenez, [facility] 22589 F41.1 B37.0 Office Visit 10/10/2015 1:30p Main Office Shwetha Lerma, [facility] 63918 F41.9 Office Visit 08/29/2015 9:40a [facility] Office Pradeep Lopez M.D. 12247 F41.9 Office Visit 08/07/2015 7:30p Main Office Linda Jimenez, [facility] 48326 N39.0 Office Visit 07/24/2015 6:45p Main Office Linda Verar, [facility] 66579 F41.1 Office Visit 12/07/2014 11:00a Main Office Linda Jimenez, [facility] 32603 300.00 V25.8 Office Visit 05/19/2014 4:15p [facility] Office Linda Jimenez, [facility] 52353 372.00 Office Visit 11/05/2013 1:30p Main Office Samanta RosraioELIAS 23079 372.00 465.9 Office Visit 09/02/2013 6:15p Main Office Shwetha Lerma, [facility] 05993 616.10 Office Visit 06/25/2013 3:30p Main Office Linda Jimenez, [facility] 82714 599.0 112.0 Office Visit 04/29/2013 11:15a [facility] Office Linda Jimenez, [facility] 20343 300.00 Office Visit 02/15/2013 10:00a Main Office Samanta RosarioELIAS 13439 465.9 372.00 300.00 Office Visit 11/19/2012 6:00p Main Office Shwetha Lerma, [facility] 53135 V04.89 Office Visit 11/18/2012 1:00p Main Office Linda Jimenez, [facility] 08417 300.00 311 Office Visit 09/17/2012 12:15p [facility] Office Davey Dorantes-C 54315 112.0 300.00 Office Visit 06/22/2012 6:00p Main Office Linda Jimenez, [facility] 51843 300.00 Office Visit 05/26/2012 11:00a [facility] Office Ady Oneil M.D. 27044 780.79 Office Visit 05/11/2012 4:30p [facility] Ady Oneil M.D. 45930 462 Office Visit 02/01/2012 10:00a Main Office Linda Jimenez, [facility] 49222 477.9 Office Visit 01/10/2012 11:15a Main Office Linda Jimenez, [facility] 70657 300.00 Office Visit 10/31/2011 2:30p [facility] Office Linda Jimenez, [facility] 17691 V20.2 Office Visit 06/24/2011 9:00a Main Office Pradeep Lopez M.D. 76865 719.49 Office Visit 05/22/2011 2:10p Main Office Pradeep Lopez M.D. 72959 782.1 112.1 Office Visit 02/21/2011 10:30a [facility] Office Linda Jimenez, [facility] 89967 300.00 Office Visit 02/11/2011 1:45p Main Office Linda Jimenez [facility] 53471 300.00 Office Visit 12/25/2010 2:10p Main Office Kevin Bazan M.D. 99295 599.0 112.1 Office Visit 12/20/2010 1:45p [facility] Office Linda Jimenez, [facility] 02854 300.00 Office Visit 12/04/2010 3:10p [facility] Office Pradeep Lopez M.D. 26196 785.1 Office Visit 05/03/2010 8:00p Main Office Emre Plummer M.D. 81191 V70.3 785.2 782.1 V04.81 v04.81 V05.4 v05.4 791.7 Office Visit 04/12/2010 3:10p [facility] Jenelle Monroe M.D. 04460 477.9 Office Visit 08/15/2009 3:00p [facility] Office Pradeep Lopez M.D. 44525 719.47 Office Visit 08/09/2009 6:40p Main Office Pradeep Lopez M.D. 51052 719.47 Office Visit 04/29/2009 11:00a Main Office Ady Oneil M.D. 57381 465.9 Office Visit 04/25/2009 3:15p [facility] Office Subha Love 47313 465.9 477.9 Office Visit 04/03/2009 9:30a [facility] Office Ady Oneil M.D. 97573 465.9 Office Visit 03/14/2009 4:00p [facility] Office Subha Love 87068 078.12 Office Visit 10/03/2008 11:20a [facility] Office Brianna Lee M.D. 97215 465.9 Office Visit 09/20/2008 4:20p [facility] Pradeep Lopez M.D. 61587 558.9 626.2 Office Visit 05/03/2008 4:20p [facility] Office Pradeep Lopez M.D. 10199 782.1 Office Visit 03/31/2008 3:30p [facility] Office BLANCA Morales 52575 462 477.9 Office Visit 01/26/2008 1:20p [facility] Office Pradeep Lopez M.D. 74051 V04.89 V20.2 Office Visit 12/08/2007 3:15p [facility] Office Subha Love 18164 465.9 Office Visit 10/13/2007 1:20p [facility] Office Pradeep Lopez M.D. 22919 784.0 Office Visit 12/24/2006 6:20p Main Office Pradeep Lopez M.D. 08855 V05.8 V20.2 Office Visit 04/03/2006 2:10p [facility] Kevin Bazan M.D. 71352 462 477.9 Office Visit 12/20/2005 2:40p [facility] Office Pradeep Lopez M.D. 09460 V20.2 V70.0 Office Visit 08/02/2005 2:00p [facility] Office Pradeep Lopez M.D. 59213 463 Office Visit 04/05/2005 4:10p Main Office Pradeep Lopez M.D. 99527 078.10 Office Visit 11/13/2004 2:20p [facility] Office Pradeep Lopez M.D. 59613 V20.2 Office Visit 08/28/2004 1:30p [facility] Office Odalys DamicoSubha 78639 372.00 Office Visit 04/03/2004 2:00p [facility] Office Pradeep Lopez M.D. 75549 692.9 Office Visit 02/14/2004 2:30p [facility] Office Subha Love 55297 486 Office Visit 12/07/2003 2:40p Main Office Pradeep Lopez M.D. 51995 V70.3 Office Visit 08/30/2003 2:00p [facility] Office BLANCA Morales 86475 110.9 Office Visit 01/11/2003 11:20a [facility] Office Pradeep Lopez M.D. 30345 V20.2 Office Visit 09/15/2002 2:20p Main Office Pradeep Lopez M.D. 86973 784.0 995.3 Office Visit 06/25/2002 10:00a [facility] Office Pradeep Lopez M.D. 41853 789.07 462 Office Visit 05/11/2002 10:45a [facility] Office Subha Love 85503 462 Office Visit 01/05/2002 2:40p [facility] Office Pradeep Lopez M.D. 45962 Office Visit 12/23/2000 4:10p [facility] Pradeep Lopez M.D. 92053 Plan of Care Future Appointment(s):02/17/2018 3:30 pm - [facility]AN[facility] Vitale at Main [id number]/02/2017 3:20 pm - Pradeep Lopez M.D. at [facility] [id number] - GEE VitalePG47.00 Insomnia, yuijqwmvcdcV83.9 Anxiety disorder , lqiucjdoxfeW69.9 Major depressive disorder, single episode, eumsigutiilE00.81 Binge eating wcmbnupaX65.41 Alcohol abuse counseling and surveillance of [id number] HeadacheAllComments:~B_~U_Medication Management~b_~u_ Patient Understands medications he 's taking? Yes No Are there Barriers to Adherence? Yes No Has the patient been asked about herbal supplements and therapies, and OTC meds? Yes NoFollow up:3 months
[2017-12-08] MEDS ORDERED: PROCHLORPERAZINE INJ 5 MG/ML 2 ML VIAL IV ONE (08:59)
[2017-12-08] MEDS ORDERED: NS 0.9% 1000 ML* 1,000 ML IV ONE (08:59)
[2017-12-08] MEDS ORDERED: Ketorolac INJ* 30 MG/ML 1 ML VIAL IV PUSH ONE (08:59)
[2017-12-08 09:16] LABS: ABS Basophils 0.1 10^3/ul (0-0.2); ABS Eosinophils 0.1 10^3/ul (0-0.6); ABS Lymphocytes 1.9 10^3/ul (1.0-4.8); ABS Monocytes 0.3 10^3/ul (0-0.8); ABS Neutrophils 6.5 10^3/ul (1.5-7.7); ABS Nucleated RBC 0 10^3/ul; Eosinophil % 0.7 % (0-6); Hematocrit 36 % (35-47); Hemoglobin 12.1 g/dl (12.0-16.0); Lymphocyte % 21.8 % (25-47); Mean Corpuscular HGB Conc 34 g/dl (31-36); Mean Corpuscular Hemoglobin 32 pg (27-31); Mean Corpuscular Volume 94 fL (80-97); Mean Platelet Volume 7.9 um3 (7.4-10.4); Nucleated Red Blood Cells % 0; Platelet Count 265 10^3/ul (150-450); Red Blood Count 3.82 10^6/ul (4.0-5.4); Red Cell Distribution Width 13 % (10.5-15); White Blood Count 8.9 10^3/ul (3.5-10.8)
[2017-12-08 09:29] LABS: EGFR Non-African American 92.4 (>60)
--- NOTE | 2017-12-08 10:56 | ED ---
Headache - HPI Summary HPI Summary: Patient is a 21-year-old female presenting to the ED with typical migraine. She has nausea is and vomiting on arrival. She appears diaphoretic. States she has been seen here several times for migraines. She has taken 2 sumatriptan at home yesterday without relief. When migraine began today she cannot take sumatriptan a decided to come to the ED instead. She states when she gets here usually the migraine cocktail works for her. Denies any fevers, sweats, chills. Denies any aura. Denies any visual changes or disturbances. - History Of Current Complaint Chief Complaint: EDHeadache Stated Complaint: HEADACHE Time Seen by Provider: 12/08/17 08:17 Hx Obtained From: Patient Hx Last Menstrual Period: 07/20/17 Onset/Duration: Sudden Onset Initially Headache Was: Initial Pain Scale(0-10)= - 10 - however typical migraine and not "worst of life" as this is per her usual Currently Pain Is: Current Pain Scale(0-10)= - 10 Timing: Constant Aggravating Factor: Nothing Allevating Factors: Nothing Associated Signs And Symptoms: Nausea, Vomiting - Risk Factors SAH Risk Factors: Negative Meningitis Risk Factors: Negative SDH Risk Factors: Negative Temporal Arteritis Risk Factors: Female, - Allergies/Home Medications Allergies/Adverse Reactions: Allergies Allergy/AdvReac Type Severity Reaction Status Date / Time diphenhydramine Allergy Unknown See Comment Verified 09/24/17 03:17 [From Benadryl] diazepam [From Valium] Allergy Twitching Verified 12/08/17 09:20 PMH/Surg Hx/FS Hx/Imm Hx Previously Healthy: Yes Endocrine/Hematology History: Denies: Hx Anticoagulant Therapy, Hx Blood Disorders, Hx Diabetes, Hx Thyroid Disease, Hx Anemia, Hx Unexplained Bleeding Cardiovascular History: Denies: Hx Aneurysm, Hx Hypertension, Hx Pacemaker/ICD Respiratory History: Denies: Hx Asthma, Hx Chronic Obstructive Pulmonary Disease (COPD) GI History: Denies: Hx Ulcer History: Reports: Other Problems/Disorders - Recurrent UTI Sensory History: Denies: Hx Hearing Aid Neurological History: Reports: Hx Migraine Psychiatric History: Reports: Hx Anxiety, Hx Depression Denies: Hx Panic Disorder - Surgical History Surgery Procedure, Year, and Place: tongue tied as a - had scar revision in 7th grade X2 - Immunization History Hx Pertussis Vaccination: No Immunizations Up to Date: Unable to Obtain/Confirm Infectious Disease History: No Infectious Disease History: Denies: Hx Hepatitis, Hx Human Immunodeficiency Virus (HIV), Traveled Outside the [place] in Last 30 Days - Family History Known Family History: Positive: None, Hypertension, Diabetes, Other - family hx of kidney stones Negative: Renal Disease, Respiratory Disease, Seizure Disorder Family History: R & N/C - Social History Occupation: Employed Part-time Lives: With Family Alcohol Use: Occasionally Alcohol Amount: 2-3 times/ week Hx Substance Use: No Substance Use Type: Reports: None Substance Use Comment - Amount & Last Used: this morning Hx Tobacco Use: Yes Smoking Status (MU): Former Smoker Type: Cigarettes Amount Used/How Often: 4 CIG/DAY Have You Smoked in the Last Year: Yes Review of Systems Constitutional: Negative Negative: Fever, Chills, Fatigue Positive: Photophobia. Negative: Blurred Vision, Diplopia, Drainage Negative: Epistaxis, Dental Pain Negative: Shortness Of Breath, Cough Positive: Vomiting, Nausea Genitourinary: Negative Positive: no symptoms reported, see HPI Musculoskeletal: Negative Positive: Headache All Other Systems Reviewed And Are Negative: Yes Physical Exam Triage Information Reviewed: Yes Vital Signs On Initial Exam: Initial Vitals Temp Pulse Resp BP Pulse Ox 97 F 80 19 114/87 98 12/08/17 08:07 12/08/17 08:07 12/08/17 08:07 12/08/17 08:07 12/08/17 08:07 Vital Signs Reviewed: Yes Appearance: Positive: Pain Distress Skin: Positive: Warm, Skin Color Reflects Adequate Perfusion Head/Face: Positive: Normal Head/Face Inspection Eyes: Positive: EOMI, LUIS ENRIQUE, Conjunctiva Clear Neck: Positive: Supple, No Lymphadenopathy Respiratory/Lung Sounds: Positive: Clear to Auscultation, Breath Sounds Present Cardiovascular: Positive: RRR Musculoskeletal: Positive: Normal, Strength/ROM Intact Neurological: Positive: Sensory/Motor Intact, Alert, Oriented to Person Place, Time, Speech Normal Psychiatric: Positive: Normal, Affect/Mood Appropriate AVPU Assessment: Alert Diagnostics - Vital Signs Vital Signs Temp Pulse Resp BP Pulse Ox 12/08/17 09:36 78 106/77 99 12/08/17 09:20 85 97 12/08/17 08:07 97 F 80 19 114/87 98 - Laboratory Lab Results: Lab Results 12/08/17 12/08/17 Range/Units 09:04 09:04 WBC 8.9 (3.5-10.8) 10^3/ul RBC 3.82 L (4.0-5.4) 10^6/ul Hgb 12.1 (12.0-16.0) g/dl Hct 36 (35-47) % MCV 94 (80-97) fL MCH 32 H (27-31) pg MCHC 34 (31-36) g/dl RDW 13 (10.5-15) % Plt Count 265 (150-450) 10^3/ul MPV 7.9 (7.4-10.4) um3 Neut % (Auto) 73.0 (38-83) % Lymph % (Auto) 21.8 L (25-47) % [place] % (Auto) 3.9 (0-7) % Eos % (Auto) 0.7 (0-6) % Baso % (Auto) 0.6 (0-2) % Absolute Neuts (auto) 6.5 (1.5-7.7) 10^3/ul Absolute Lymphs (auto) 1.9 (1.0-4.8) 10^3/ul Absolute Monos (auto) 0.3 (0-0.8) 10^3/ul Absolute Eos (auto) 0.1 (0-0.6) 10^3/ul Absolute Basos (auto) 0.1 (0-0.2) 10^3/ul Absolute Nucleated RBC 0 10^3/ul Nucleated RBC % 0 ESR 14 (0-14) mm/Hr Sodium 142 (139-145) mmol/L Potassium 4.1 (3.5-5.0) mmol/L Chloride 106 (101-111) mmol/L Carbon Dioxide 29 (22-32) mmol/L Anion Gap 7 (2-11) mmol/L BUN 10 (6-24) mg/dL Creatinine 0.78 (0.51-0.95) mg/dL Est GFR ( Amer) 118.8 (>60) Est GFR (Non-Af Amer) 92.4 (>60) BUN/Creatinine Ratio 12.8 (8-20) Glucose 93 (70-100) mg/dL Calcium 9.3 (8.6-10.3) mg/dL Total Bilirubin 0.40 (0.2-1.0) mg/dL AST 20 (13-39) U/L ALT 12 (7-52) U/L Alkaline Phosphatase 31 L (34-104) U/L Total Protein 7.5 (6.4-8.9) g/dL Albumin 4.5 (3.2-5.2) g/dL Globulin 3.0 (2-4) g/dL Albumin/Globulin Ratio 1.5 (1-3) Result Diagrams: 12/08/17 09:04 12/08/17 09:04 Lab Statement: Any lab studies that have been ordered have been reviewed, and results considered in the medical decision making process. Headache Course/Dx - Course Course Of Treatment: During the course of treatment, the patient is given a migraine cocktail. Labs are obtained and are unremarkable. Migraine cocktail completely resolved her symptoms and she is currently at a 0/10. She states she will continue her at home sumatriptan for any migraine and tubes. Vital signs are stable and she appears well. - Diagnoses Differential Diagnosis/HQI/PQRI: Migraine, Sinus Headache, Tension Headache, Viral Syndrome Provider Diagnoses: Migraine Discharge - Sign-Out/Discharge Documenting (check all that apply): Discharge/Admit/Transfer - Discharge Plan Condition: Stable Disposition: HOME Patient Education Materials: Migraine Headache (ED) Referrals: Pradeep Lopez MD [Primary Care Provider] - - Billing Disposition and Condition Condition: STABLE Disposition: HOME
[2017-12-08 10:57] VITALS: BP 100/67
== END 2017-12-08 10:57 | disposition home or self-care (01) ==
LOC: ED 07:56
DX: Z88.8 Allergy status to other drugs, medicaments and biological substances (principal); F41.9 Anxiety disorder, unspecified; F32.9 Major depressive disorder, single episode, unspecified; Z87.891 Personal history of nicotine dependence
CPT/HCPCS: 36415; 80053; 85025; 85652; 96374; 96375; 99282; J0780; J1885

== ENCOUNTER 2018-12-30 09:03 | Emergency (ER) | payer OTHER ==
[2018-12-30] MEDS ORDERED: Lorazepam PYXIS KEY PRN (09:22)
[2018-12-30] MEDS ORDERED: Lorazepam PYXIS KEY ONE (09:29)
[2018-12-30] MEDS: Ketorolac INJ* 30 MG/ML 1 ML VIAL IV PUSH ONE (09:38)
[2018-12-30] MEDS: NS 0.9% 1000 ML** 1,000 ML IV ONE ×3 (09:38→13:48)
[2018-12-30] MEDS: LORazepam INJ* 2 MG/ML 1 ML VIAL IV PUSH ONE (09:38)
[2018-12-30] MEDS: Metoclopramide IV* 5 MG/ML 2 ML VIAL IV ONE (09:38)
--- NOTE | 2018-12-30 10:55 | ED ---
Headache - HPI Summary HPI Summary: Patient is a 23-year-old female with a history of migraines presenting to the ED with diffuse migraine symptoms, nausea, photophobia without phonophobia, aura or scotomata. She has been diagnosed with migraines, however has not been taking medications for this. She states she was given Imitrex several years ago , but has not been able to take this as a interferes with her other medications. Last migraine was approximately 8 months ago in which she needs come to the ED and was given Toradol, Ativan, Reglan and fluids with good improvement. She states this feels as though it is her typical migraine, however it is on the right side instead of the left side. Denies any neck stiffness. Denies any vomiting. Denies any visual changes. Symptoms have been present 2 days and has been worsening. She is taken aspirin at home without relief. - History Of Current Complaint Chief Complaint: EDHeadache Stated Complaint: MIGRAINE PER PT Time Seen by Provider: 12/30/18 09:16 Hx Obtained From: Patient Hx Last Menstrual Period: 07/20/17 Onset/Duration: Sudden Onset Initially Headache Was: "Worst Headache Ever" - 9 Currently Pain Is: Current Pain Scale(0-10)= - 8 Timing: Constant Character: Migraine Location of Headache: Diffuse Aggravating Factor: Nothing Allevating Factors: Nothing Associated Signs And Symptoms: Negative - Risk Factors SAH Risk Factors: Negative Meningitis Risk Factors: Negative SDH Risk Factors: Negative - Allergies/Home Medications Allergies/Adverse Reactions: Allergies Allergy/AdvReac Type Severity Reaction Status Date / Time diphenhydramine Allergy Unknown See Comment Verified 12/30/18 09:08 [From Benadryl] diazepam [From Valium] Allergy Twitching Verified 12/30/18 09:08 Home Medications: Home Medications Amphetamine/Dextroamph ER(NF) [Adderal XR (NF)] 20 mg PO DAILY 12/30/18 [ History Confirmed 12/30/18] Divalproex ER TAB(*) [Depakote ER TAB(*)] 1,000 mg PO DAILY 12/30/18 [History Confirmed 12/30/18] PMH/Surg Hx/FS Hx/Imm Hx Previously Healthy: Yes Endocrine/Hematology History: Denies: Hx Anticoagulant Therapy, Hx Blood Disorders, Hx Diabetes, Hx Thyroid Disease, Hx Anemia, Hx Unexplained Bleeding Cardiovascular History: Denies: Hx Aneurysm, Hx Hypertension, Hx Pacemaker/ICD Respiratory History: Denies: Hx Asthma, Hx Chronic Obstructive Pulmonary Disease (COPD) GI History: Denies: Hx Ulcer History: Reports: Other Problems/Disorders - Recurrent UTI Sensory History: Denies: Hx Hearing Aid Neurological History: Reports: Hx Migraine Psychiatric History: Reports: Hx Anxiety, Hx Depression Denies: Hx Panic Disorder - Surgical History Surgery Procedure, Year, and Place: tongue tied as a - had scar revision in 7th grade X2 - Immunization History Hx Pertussis Vaccination: No Immunizations Up to Date: Yes Infectious Disease History: No Infectious Disease History: Denies: Hx Hepatitis, Hx Human Immunodeficiency Virus (HIV), Traveled Outside the [place] in Last 30 Days - Family History Known Family History: Positive: None, Hypertension, Diabetes, Other - family hx of kidney stones Negative: Renal Disease, Respiratory Disease, Seizure Disorder Family History: R & N/C - Social History Occupation: Employed Full-time Lives: With Family Alcohol Use: Occasionally Alcohol Amount: 4-5 times/week Hx Substance Use: No Substance Use Type: Reports: Marijuana Substance Use Comment - Amount & Last Used: 12/29/18 Hx Tobacco Use: Yes Smoking Status (MU): Former Smoker Type: Cigarettes Amount Used/How Often: 4 CIG/DAY Have You Smoked in the Last Year: Yes Review of Systems Negative: Fever, Chills, Fatigue, Skin Diaphoresis Positive: Photophobia. Negative: Blurred Vision, Diplopia, Drainage Negative: Palpitations, Chest Pain Negative: Shortness Of Breath, Cough Positive: Nausea. Negative: Abdominal Pain, Diarrhea Positive: Headache Negative: Anxious, Depressed All Other Systems Reviewed And Are Negative: Yes Physical Exam Triage Information Reviewed: Yes Vital Signs On Initial Exam: Initial Vitals Temp Pulse Resp BP Pulse Ox 97.8 F 53 16 121/67 98 12/30/18 09:06 12/30/18 09:06 12/30/18 09:06 12/30/18 09:06 12/30/18 09:06 Vital Signs Reviewed: Yes Appearance: Positive: Well-Appearing, Well-Nourished, Pain Distress Skin: Positive: Warm, Skin Color Reflects Adequate Perfusion Head/Face: Positive: Normal Head/Face Inspection Eyes: Positive: EOMI, Conjunctiva Clear Neck: Positive: Supple, No Lymphadenopathy Respiratory/Lung Sounds: Positive: Clear to Auscultation, Breath Sounds Present Cardiovascular: Positive: RRR, Pulses are Symmetrical in both Upper and Lower Extremities Musculoskeletal: Positive: Strength/ROM Intact Neurological: Positive: Sensory/Motor Intact, Alert, Oriented to Person Place, Time, Speech Normal Psychiatric: Positive: Affect/Mood Appropriate AVPU Assessment: Alert Diagnostics - Vital Signs Vital Signs Temp Pulse Resp BP Pulse Ox 12/30/18 09:38 17 12/30/18 09:06 97.8 F 53 16 121/67 98 - Laboratory Lab Statement: Any lab studies that have been ordered have been reviewed, and results considered in the medical decision making process. Headache Course/Dx - Course Course Of Treatment: During the course treatment, the patient appears to be in distress. Pain is currently rated a 9/10. Symptoms have been present 2 days. Aspirin without improvement. She is given 1 L fluids, 1 mg Ativan, 30 mg Toradol and reglan 10mg with good improvement of her sxs. She states she is ready to be discharged and TA currently rated 2/10. On discharge, her BP is noted to be 79/53 and she now c/o dizziness. She has an allergy to valium with same effects, but has never had side effects from ativan. Likely hypotension secondary to ativan. Rehydrated with NS. Repeat BP continues to be low. Continuous repeats with allowing pt to rest. Pt denies symptoms and BP manual 89/64. Pt OK for discharge at this time and is asymptomatic. - Diagnoses Differential Diagnosis/HQI/PQRI: Migraine, Sinus Headache, Tension Headache Provider Diagnoses: Migraine, Hypotension Discharge - Sign-Out/Discharge Documenting (check all that apply): Patient Departure Patient Received Moderate/Deep Sedation with Procedure: No - Discharge Plan Condition: Stable Disposition: HOME Prescriptions: Ketorolac TAB * [Toradol TAB *] 10 mg PO Q6H #16 tab Metoclopramide TAB* [Reglan TAB*] 10 mg PO Q6H PRN #12 tab PRN Reason: Nausea Patient Education Materials: Migraine Headache (ED) Referrals: Tony García MD [Medical Doctor] - Pradeep Lopez MD [Primary Care Provider] - Additional Instructions: I recommend taking Toradol and Reglan simultaneously as well as sleep when he began to develop migraine symptoms Reglan is for any nausea associated with migraine Toradol may be taken up to 4 times daily, did not take ibuprofen, aspirin, Excedrin or other NSAIDs while taking this medication You may take Tylenol on opposite schedule Please follow-up with Dr. García in neurology - Billing Disposition and Condition Condition: STABLE Disposition: Home
[2018-12-30 16:41] VITALS: BP 96/61
== END 2018-12-30 16:39 | disposition home or self-care (01) ==
LOC: ED 09:03
DX: G43.909 Migraine, unspecified, not intractable, without status migrainosus (principal); I95.9 Hypotension, unspecified; F41.9 Anxiety disorder, unspecified; F32.9 Major depressive disorder, single episode, unspecified; F17.210 Nicotine dependence, cigarettes, uncomplicated; Z79.899 Other long term (current) drug therapy
CPT/HCPCS: 96361; 96374; 96375; 99284; J1885; J2060; J2765

== ENCOUNTER 2019-02-06 20:37 | Emergency (ER) | payer OTHER ==
[2019-02-06 20:50] VITALS: BP 108/70
[2019-02-06] MEDS ORDERED: Tetan/Diph/Pertus SYR(Tdap)* 0.5 ML SYR(BOOSTRIX) use SYR IM ONE (21:04)
--- NOTE | 2019-02-06 21:13 | UC ---
Laceration HPI - HPI Summary HPI Summary: 23 year old female who last night cut medial part of L foot on metal in her driveway., Believes last tetanus was 2012. + bleeding, but controlled. SHe noted increased redness extending from area. H/O yeast infections with ABXs. NO difficulty with walking/ standing, no pain except for rubbing on shoe. - History Of Current Complaint Chief Complaint: UCSkin Stated Complaint: FOOT LAC Time Seen by Provider: 02/06/19 20:41 Hx Obtained From: Patient Hx Last Menstrual Period: IUD Laceration Location: Foot - right Mechanism Of Injury: Sharp Trauma Onset/Duration: Sudden Onset, Lasting Days Severity: Mild Pain Intensity: 4 Pain Scale Used: 0-10 Numeric Aggravating Factors: Nothing - Allergies/Home Medications Allergies/Adverse Reactions: Allergies Allergy/AdvReac Type Severity Reaction Status Date / Time diphenhydramine Allergy Unknown See Comment Verified 02/06/19 20:54 [From Benadryl] diazepam [From Valium] Allergy Twitching Verified 02/06/19 20:54 PMH/Surg Hx/FS Hx/Imm Hx Previously Healthy: Yes Other History Of: Negative For: HIV, Hepatitis B, Hepatitis C, Anticoagulant Therapy - Surgical History Surgical History: None Surgery Procedure, Year, and Place: tongue tied as a - had scar revision in 7th grade X2 - Family History Known Family History: Positive: None, Hypertension, Diabetes, Other - family hx of kidney stones, Non-Contributory Negative: Renal Disease, Respiratory Disease, Seizure Disorder Family History: R & N/C - Social History Alcohol Use: Occasionally Alcohol Amount: 4-5 times/week Substance Use Type: Marijuana Substance Use Comment - Amount & Last Used: 12/29/18 Smoking Status (MU): Former Smoker Type: Cigarettes Amount Used/How Often: 4 CIG/DAY Have You Smoked in the Last Year: Yes Household Exposure Type: Cigarettes - Immunization History Most Recent Influenza Vaccination: none Review of Systems All Other Systems Reviewed And Are Negative: Yes Constitutional: Positive: Negative Skin: Positive: Other - redness Musculoskeletal: Positive: Edema. Negative: Arthralgia, Myalgia Is Patient Immunocompromised?: No Physical Exam Triage Information Reviewed: Yes Appearance: Well-Appearing, No Pain Distress, Well-Nourished Vital Signs: Initial Vital Signs Temp 98.0 F 02/06/19 20:44 Pulse 64 02/06/19 20:44 Resp 12 02/06/19 20:44 BP 108/70 02/06/19 20:44 Pulse Ox 97 02/06/19 20:44 Vital Signs Reviewed: Yes Eyes: Positive: Conjunctiva Clear ENT: Positive: Hearing grossly normal Musculoskeletal Exam: Normal Musculoskeletal: Positive: Strength Intact, ROM Intact, No Edema, Other: - mild erythema noted over medial foot surrounding laceration with extension anteriorly towards ankle, no TTP, decreased ROM, strength decrease over ankle, toes, foot. SITLT Neurological Exam: Normal Psychological Exam: Normal Skin: Positive: Other - small healed laceration medial mid foot ~ 5mm Laceration Course/Dx - Course/Dx Course Of Treatment: Laceration- tetanus updated, wound cleaned. - Diflucan every other day to every third day as needed after completing antibiotics for yeast infection if needed. Use monistat until completed antibiotics - Increase fluid intake - Motrin/ Tylenol as needed for pain - Tetanus given today - Continue to monitor area for increased swelling or redness- if no improvement or worsening please return or go to ER. - Differential Dx - Laceration/Wound Differental Diagnoses: Healing Wound, Joint Infection, Tenosynovitis - Diagnosis Provider Diagnosis: Puncture wound of foot Discharge - Sign-Out/Discharge Documenting (check all that apply): Patient Departure All imaging exams completed and their final reports reviewed: No Studies - Discharge Plan Condition: Good Disposition: HOME Prescriptions: Cephalexin CAP* [Keflex CAP*] 500 mg PO TID #15 cap Fluconazole 150 MG TAB* [Diflucan 150 MG TAB*] 150 mg PO ONCE #3 tablet Miconazole Nitrate [Monistat 7 Combination Pa] 1 kit VAGINAL DAILY #1 kit Patient Education Materials: Puncture Wound (ED) Referrals: Pradeep Lopez MD [Primary Care Provider] - Additional Instructions: - Diflucan every other day to every third day as needed after completing antibiotics for yeast infection if needed. Use monistat until completed antibiotics - Increase fluid intake - Motrin/ Tylenol as needed for pain - Tetanus given today - Continue to monitor area for increased swelling or redness- if no improvement or worsening please return or go to ER. - Billing Disposition and Condition Condition: GOOD Disposition: Home - Attestation Statements Provider Attestation: I was available for consult. This patient was seen by the MARLENA. The patient was not presented to, seen by, or examined by me. -Kirstin
== END 2019-02-06 21:23 | disposition home or self-care (01) ==
LOC: UCEAST 20:37
DX: S91.332A Puncture wound without foreign body, left foot, initial encounter (principal); W22.8XXA Striking against or struck by other objects, initial encounter; Y92.014 Private driveway to single-family (private) house as the place of occurrence of the external cause; Z87.891 Personal history of nicotine dependence
CPT/HCPCS: 90471; 90715; 99212; G0463

== ENCOUNTER 2019-08-18 17:31 | Emergency (ER) | payer OTHER ==
--- OUTSIDE RECORDS SUMMARY | 2019-08-18 17:38 | XMS REPORT ---
:1995 Author Organization [facility] Care Team Providers Name Role Phone SOURAV CACERES Primary Care Physician Unavailable Allergies, Adverse Reactions, Alerts Allergy Code CodeSystem Reaction Severity Criticality Status Start Substance Date Moderate Medications Medication Medication Medication Start Stop Route Dose Status Fill Code CodeSystem Date Date Instructions dextroamphet 936179 RxNorm 2019-03- oral 20 mg active for 30 amine-amphet -19 10-19 tablet day(s) amine divalproex [id number] RxNorm 2019-03- oral 500 mg 2 active 2 tablet -20 12- tablet,d once a day elayed for 30 day(s) release (DR/EC) once a day dextroamphet [id number] RxNorm 2019-02- oral 20 mg completed for 30 amine-amphet -19 09-19 tablet day(s) amine dextroamphet 885561 RxNorm 2018-10- oral 20 mg completed for 30 amine-amphet -26 05-24 tablet day(s) amine dextroamphet 305620 RxNorm 2018-10- oral 20 mg completed for 30 amine-amphet -26 06-28 tablet day(s) amine dextroamphet 626751 RxNorm 2018-11- oral 20 mg completed for 30 amine-amphet -24 06-23 capsule, day(s) amine extended release 24hr dextroamphet [id number] RxNorm 2019-02- oral 20 mg completed for 30 amine-amphet -19 09-18 tablet day(s) amine dextroamphet [id number] RxNorm 2019-02- oral 20 mg completed for 30 amine-amphet -19 09-19 capsule, day(s) amine extended release 24hr divalproex [id number] RxNorm 2018-09- oral 250 mg completed for 30 -22 -26 tablet,d day(s) elayed release (DR/EC) divalproex [id number] RxNorm 2018-10- oral 500 mg 2 completed 2 tablet -26 07-25 tablet,d once a day elayed for 30 day(s) release (DR/EC) once a day dextroamphet 529152 RxNorm 2018-12- oral 20 mg completed for 30 amine-amphet -28 08-19 capsule, day(s) amine extended release 24hr dextroamphet 750938 RxNorm 2018-12- oral 20 mg completed for 30 amine-amphet -28 -28 capsule, day(s) amine extended release 24hr dextroamphet 879130 RxNorm 2018-10- oral 20 mg completed for 30 amine-amphet -26 05-24 capsule, day(s) amine extended release 24hr Lamictal [id number] RxNorm 2019-03- oral 25 mg active for 30 -20 11-19 tablet day(s) dextroamphet 531903 RxNorm 2018-09- oral 20 mg completed for 30 amine-amphet -22 04-26 tablet day(s) amine dextroamphet [id number] RxNorm 2018-11- oral 20 mg completed for 30 amine-amphet -24 06-28 capsule, day(s) amine extended release 24hr dextroamphet [id number] RxNorm 2019-02- oral 20 mg completed for 30 amine-amphet -19 09-18 capsule, day(s) amine extended release 24hr dextroamphet 214282 RxNorm 2018-09- oral 20 mg completed for 30 amine-amphet -22 04-26 capsule, day(s) amine extended release 24hr dextroamphet 747688 RxNorm 2019-03- oral 20 mg active for 30 amine-amphet -19 10-19 capsule, day(s) amine extended release 24hr dextroamphet 205014 RxNorm 2018-11- oral 20 mg completed for 30 amine-amphet -24 06-23 tablet day(s) amine dextroamphet 705098 RxNorm 2018-12- oral 20 mg completed for 30 amine-amphet -28 07-28 tablet day(s) amine dextroamphet 095403 RxNorm 2018-12- oral 20 mg completed for 30 amine-amphet -28 08- tablet day(s) amine Problems Problem Name Code CodeSystem Alternate Alternate Start End Status Narrative Code CodeSystem Date Date Bipolar II 27066922 SNOMED-CT 2018- Active disorder 3- Bipolar II 86701320 SNOMED-CT Active disorder 3-22 Disturbance 16887769 SNOMED-CT 2018-07 Active of activity 0-03 and attention Relevant diagnostic tests/laboratory data Narrative No Information Procedures Procedure Code CodeSystem Target Date of Status Service Device Device Device Name Site Procedure Delivery Code Name UID Location Psychotherap [id number] SNOMED-CT () 2018-12-31 complete Mental y, 44 04 d Health- minutes with [facility], [id number] [id number] Psychotherap [id number] SNOMED-CT () 2019-01-22 complete Mental y, 45 04 d Health- minutes with [address], [id number] [phone] Psychotherap [id number] SNOMED-CT () 2019-02-25 complete Mental y, 45 04 d Health- minutes with [address], [id number] [phone] Psychotherap [id number] SNOMED-CT () 2018-10-26 complete Mental y, 45 04 d Health- minutes with [address], [id number] [id number] Psychotherap [id number] SNOMED-CT () 2018-11-10 complete Mental y, 45 04 d Health- minutes with [address], [id number] [id number] Psychotherap [id number] SNOMED-CT () 2019-05-03 complete Mental y, 45 04 d Health- minutes with [address], [id number] [phone] Psychotherap [id number] SNOMED-CT () 2019-05-19 complete Mental y, 45 04 d Health- minutes with [address], [id number] [id number] Psychotherap [id number] SNOMED-CT () 2019-04-21 complete Mental y, 45 04 d Health- minutes with [place] patient [address], [id number] [id number] Psychotherap [id number] SNOMED-CT () 2019-04-12 complete Mental y, 45 04 d Health- minutes with [facility] patient [address], [id number] [phone] Psychotherap 140016 SNOMED-CT () 2019-06-16 complete Mental y, 45 04 d Health- minutes with [facility] patient [address], [id number] [phone] Psychotherap [id number] SNOMED-CT () 2019-06-30 complete Mental y, 45 04 d Health- minutes with [place] patient [address], [id number] [phone] Psychotherap [id number] SNOMED-CT () 2019-07-26 complete Mental y, 45 04 d Health- minutes with [facility] patient [address], [id number] [phone] Office or [id number] SNOMED-CT () 2019-04-15 complete Mental other 7 d Health- outpatient [place] visit for [address], established [id number] patient, [phone] which requires at least 2 of these 3 espinal components: An expanded problem focused history; An expanded problem focused examination; Medical decision making of low Office or [id number] SNOMED-CT () 2019-05-05 complete Mental other 7 d Health- outpatient [facility] visit for [address], [facility] [id number] patient, [phone] which requires at least 2 of these 3 espinal components: An expanded problem focused history; An expanded problem focused examination; Medical decision making of low Office or [id number] SNOMED-CT () 2019-06-09 complete Mental other 7 d Health- outpatient [facility] visit for [address], established [id number] patient, [phone] which requires at least 2 of these 3 espinal components: An expanded problem focused history; An expanded problem focused examination; Medical decision making of low Office or [id number] SNOMED-CT () 2018-11-06 complete Mental other 7 d Health- outpatient [facility] visit for [address], [facility], established [id number] patient, [phone] which requires at least 2 of these 3 espinal components: An expanded problem focused history; An expanded problem focused examination; Medical decision making of [facility] Office or [id number] SNOMED-CT () 2019-04-02 complete Mental other 7 d Health- outpatient [place] visit for [address], [facility], established [id number] patient, [phone] which requires at least 2 of these 3 espinal components: An expanded problem focused history; An expanded problem focused examination; Medical decision making of [facility] SNOMED-CT () 2019-06-04 complete Mental d Health[address], [id number] [id number] SNOMED-CT () 2018-10-30 complete Mental d [address], [id number] [phone] SNOMED-CT () 2018-12-16 complete Mental d [address], [phone] SNOMED-CT () 2019-04-13 complete Mental d [address], [phone] Encounters/Encounter Diagnoses Encounter Name Encounter Diagnosis Diagnosis Diagnosis Date of Service Code Code Name CodeSystem Diagnosis Delivery Location [facility] 44825 [id number] Bipolar II SNOMED-CT 2019-07-26 Behavioral Individual 30 disorder Health [facility] [address] [place] [address], [phone] Vital Signs No Information Social History Element Description Description Start End Code CodeSystem AdditionalInfo Date Date SexAssignedAtBirth Female F AdministrativeGender 12-17 Hospital Discharge Instructions Reason For Referral Medical Equipment FDA Assessments
--- OUTSIDE RECORDS SUMMARY | 2019-08-18 17:38 | XMS REPORT ---
:1995 Author Organization [facility] Care Team Providers Name Role Phone SOURAV CACERES Primary Care Physician Unavailable Allergies, Adverse Reactions, Alerts Allergy Code CodeSystem Reaction Severity Criticality Status Start Substance Date Moderate Medications Medication Medication Medication Start Stop Route Dose Status Fill Code CodeSystem Date Date Instructions dextroamphet [id number] RxNorm 2019-03- oral 20 mg active for 30 amine-amphet -19 10-19 capsule, day(s) amine extended release 24hr dextroamphet 868943 RxNorm 2018-12- oral 20 mg completed for 30 amine-amphet -28 07-28 capsule, day(s) amine extended release 24hr dextroamphet 440943 RxNorm 2018-10- oral 20 mg completed for 30 amine-amphet -26 05-24 capsule, day(s) amine extended release 24hr dextroamphet 406174 RxNorm 2018-12- oral 20 mg completed for 30 amine-amphet -28 08-19 capsule, day(s) amine extended release 24hr dextroamphet [id number] RxNorm 2018-09- oral 20 mg completed for 30 amine-amphet -22 04-26 capsule, day(s) amine extended release 24hr Lamictal [id number] RxNorm 2019-03- oral 25 mg active for 30 -20 11-19 tablet day(s) dextroamphet 051874 RxNorm 2018-10- oral 20 mg completed for 30 amine-amphet -26 06-28 tablet day(s) amine dextroamphet [id number] RxNorm 2018-11- oral 20 mg completed for 30 amine-amphet -24 06-23 tablet day(s) amine dextroamphet 039540 RxNorm 2019-02- oral 20 mg completed for 30 amine-amphet -19 09-19 capsule, day(s) amine extended release 24hr divalproex [id number] RxNorm 2019-03- oral 500 mg 2 active 2 tablet -20 12-19 tablet,d once a day elayed for 30 day(s) release (DR/EC) once a day divalproex [id number] RxNorm 2018-09- oral 250 mg completed for 30 -22 04-26 tablet,d day(s) elayed release (DR/EC) dextroamphet 880614 RxNorm 2018-11- oral 20 mg completed for 30 amine-amphet -24 06-28 capsule, day(s) amine extended release 24hr dextroamphet 754650 RxNorm 2019-03- oral 20 mg active for 30 amine-amphet -19 10-19 tablet day(s) amine dextroamphet 203037 RxNorm 2018-09- oral 20 mg completed for 30 amine-amphet -22 04-26 tablet day(s) amine dextroamphet [id number] RxNorm 2019-02- oral 20 mg completed for 30 amine-amphet -19 09-18 tablet day(s) amine dextroamphet 784527 RxNorm 2018-10- oral 20 mg completed for 30 amine-amphet -26 05-24 tablet day(s) amine dextroamphet 345278 RxNorm 2019-02- oral 20 mg completed for 30 amine-amphet -19 09-18 capsule, day(s) amine extended release 24hr dextroamphet 494141 RxNorm 2018-12- oral 20 mg completed for 30 amine-amphet -28 08-19 tablet day(s) amine dextroamphet 164764 RxNorm 2018-12- oral 20 mg completed for 30 amine-amphet -28 07-28 tablet day(s) amine dextroamphet 100398 RxNorm 2019-02- oral 20 mg completed for 30 amine-amphet -19 09-19 tablet day(s) amine divalproex 0762556 RxNorm 2018-10- oral 500 mg 2 completed 2 tablet -26 07-25 tablet,d once a day elayed for 30 day(s) release (DR/EC) once a day dextroamphet 971836 RxNorm 2018-11- oral 20 mg completed for 30 amine-amphet -24 - capsule, day(s) amine extended release 24hr Problems Problem Name Code CodeSystem Alternate Alternate Start End Status Narrative Code CodeSystem Date Date Disturbance [id number] SNOMED-CT 2018-07 Active of activity 0-03 and attention Bipolar II 45365776 SNOMED-CT Active disorder 10-02 Bipolar II 31395798 SNOMED-CT Active disorder - Relevant diagnostic tests/laboratory data Narrative No Information Procedures Procedure Code CodeSystem Target Date of Status Service Device Device Device Name Site Procedure Delivery Code Name UID Location Psychotherap [id number] SNOMED-CT () 2018-12-31 complete Mental y, 45 04 d Health- minutes with [address], [id number] [id number] Psychotherap [id number] SNOMED-CT () 2019-01-22 complete Mental y, 45 04 d Health- minutes with [address], [id number] [phone] Psychotherap [id number] SNOMED-CT () 2019-02-25 complete Mental y, 45 04 d Health- minutes with [address], [id number] [phone] Psychotherap [id number] SNOMED-CT () 2018-10-26 complete Mental y, 45 04 d Health- minutes with [address], [id number] [phone] Psychotherap [id number] SNOMED-CT () 2018-11-10 complete Mental y, 45 04 d Health- minutes with [address], [id number] [phone] Psychotherap [id number] SNOMED-CT () 2019-05-03 complete Mental y, 45 04 d Health- minutes with [address], [phone] [phone] Psychotherap [id number] SNOMED-CT () 2019-05-19 complete Mental y, 45 04 d Health- minutes with [address], [id number] [phone] Psychotherap [id number] SNOMED-CT () 2019-04-21 complete Mental y, 45 04 d Health- minutes with [place] patient [address], [phone] Psychotherap [id number] SNOMED-CT () 2019-04-12 complete Mental y, 45 04 d Health- minutes with [facility] patient [address], [id number] [phone] Psychotherap [id number] SNOMED-CT () 2019-06-16 complete Mental y, 45 04 d Health- minutes with [facility] patient [address], [phone] [phone] Office or [id number] SNOMED-CT () 2019-04-15 complete Mental other 7 d Health- outpatient [facility] visit for [address], established [id number] patient, [phone] which requires at least 2 of these 3 espinal components: An expanded problem focused history; An expanded problem focused examination; Medical decision making of low Office or 889338 SNOMED-CT () 2019-05-05 complete Mental other 7 d Health- outpatient [facility] visit for [address], established [phone] patient, [phone] which requires at least 2 of these 3 espinal components: An expanded problem focused history; An expanded problem focused examination; Medical decision making of low Office or 538583 SNOMED-CT () 2019-06-09 complete Mental other 7 d Health- outpatient [place] visit for [address], established [id number] patient, [phone] which requires at least 2 of these 3 espinal components: An expanded problem focused history; An expanded problem focused examination; Medical decision making of low Office or 374301 SNOMED-CT () 2018-11-06 complete Mental other 7 d Health- outpatient [place] visit for [address], established [id number] patient, [phone] which requires at least 2 of these 3 espinal components: An expanded problem focused history; An expanded problem focused examination; Medical decision making of low Office or 861695 SNOMED-CT () 2019-04-02 complete Mental other 7 d Health- outpatient [facility] visit for [address], management [place], of [place], established [id number] patient, [phone] which requires at least 2 of these 3 espinal components: An expanded problem focused history; An expanded problem focused examination; Medical decision making of low SNOMED-CT () 2019-06-04 complete Mental d [address], [id number] [phone] SNOMED-CT () 2018-10-30 complete Mental d [address], [id number] [phone] SNOMED-CT () 2018-12-16 complete Mental d [address], [id number] [phone] SNOMED-CT () 2019-04-13 complete Mental [address], [id number] [phone] Encounters/Encounter Diagnoses Encounter Name Encounter Diagnosis Diagnosis Diagnosis Date of Service Code Code Name CodeSystem Diagnosis Delivery Location [facility] [address] [id number] Bipolar II SNOMED-CT 2019-06-16 Behavioral Individual 30 disorder Health [facility] [address] [place] [address], [phone] Vital Signs No Information Social History Element Description Description Start End Code CodeSystem AdditionalInfo Date Date SexAssignedAtBirth Female F AdministrativeGender 12-17 Hospital Discharge Instructions Reason For Referral Medical Equipment FDA Assessments
[2019-08-18 17:53] VITALS: BP 121/76
--- NOTE | 2019-08-18 18:34 | UC ---
Abdominal Pain Female HPI - HPI Summary HPI Summary: 23-year-old female presents with 4 day history of left lower quadrant pain. States pain is sharp and constant. Radiates around her left flank to her back. Worsens with touch and movement. Patient states that she self treated for a vaginal yeast infection 2 weeks ago with a cream that had been prescribed to her in the past. Symptoms did subside however she has started noticing a discharge again since the onset of pain however denies any vaginal itching at this time. Reports history of both ovarian cyst and kidney stone the past. Patient has IUD and does not get her menses. Patient is sexually active with multiple male partners. States she was last tested for STIs in April 2019. She has had 2 or 3 different partners since that time. Denies fever, chills, nausea, vomiting, diarrhea, dysuria, frequency, urgency, hematuria, or dyspareunia. - History of Current Complaint Chief Complaint: UCAbdominalPain Stated Complaint: LEFT ABD PAIN Time Seen by Provider: 08/18/19 17:41 Hx Obtained From: Patient Hx Last Menstrual Period: 1-2 years, has IUD Pain Intensity: 5 Allergies/Adverse Reactions: Allergies Allergy/AdvReac Type Severity Reaction Status Date / Time diphenhydramine Allergy Unknown See Comment Verified 08/18/19 17:53 [From Benadryl] diazepam [From Valium] Allergy Twitching Verified 08/18/19 17:53 PMH/Surg Hx/FS Hx/Imm Hx Previously Healthy: Yes Psychological History: Bipolar Disorder, Other - ADHD Other History Of: Negative For: HIV, Hepatitis B, Hepatitis C, Anticoagulant Therapy - Surgical History Surgical History: None Surgery Procedure, Year, and Place: tongue tied as a - had scar revision in 7th grade X2 - Family History Known Family History: Positive: Hypertension, Diabetes, Other - family hx of kidney stones Negative: Renal Disease, Respiratory Disease, Seizure Disorder - Social History Occupation: Employed Full-time Lives: Alone Alcohol Use: Occasionally Alcohol Amount: 4-5 times/week Substance Use Type: Marijuana Substance Use Comment - Amount & Last Used: 12/29/18 Smoking Status (MU): Former Smoker Type: Cigarettes Amount Used/How Often: 4 CIG/DAY Have You Smoked in the Last Year: Yes When Did the Patient Quit Smoking/Using Tobacco: pt vapes Household Exposure Type: Cigarettes - Immunization History Most Recent Influenza Vaccination: none Review of Systems All Other Systems Reviewed And Are Negative: Yes Constitutional: Negative: Fever, Chills Skin: Negative: Rash Gastrointestinal: Positive: Abdominal Pain. Negative: Vomiting, Diarrhea, Nausea Genitourinary: Positive: Vaginal/Penile Discharge. Negative: Dysuria, Hematuria , Frequency, Urgency, Vaginal/Penile Burning, Vaginal/Penile Pain, Ulceration/ Lesion, Abnormal Bleeding Musculoskeletal: Positive: Negative Neurological: Positive: Negative Is Patient Immunocompromised?: No Physical Exam - Summary Physical Exam Summary: GENERAL APPEARANCE: Well developed, well nourished, alert and cooperative, and appears to be in no acute distress. CARDIAC: Normal S1 and S2. No S3, S4 or murmurs. Rhythm is regular. There is no peripheral edema, cyanosis or pallor. Extremities are warm and well perfused. Capillary refill is less than 2 seconds. Peripheral pulses intact. LUNGS: Clear to auscultation without rales, rhonchi, wheezing or diminished breath sounds. ABDOMEN: Positive bowel sounds. Soft, nondistended, nontender. No guarding or rebound. No masses or hepatosplenomegally. No CVA tenderness. GENITOURINARY: MUSKULOSKELETAL: ROM intact to all extremities. No joint erythema or tenderness. Normal muscular development. Normal gait. SKIN: Skin normal color, texture and turgor with no lesions or eruptions. Triage Information Reviewed: Yes Vital Signs: Initial Vital Signs Temp 98.6 F 08/18/19 17:49 Pulse 78 08/18/19 17:49 Resp 16 08/18/19 17:49 BP 121/76 08/18/19 17:49 Pulse Ox 100 08/18/19 17:49 Vital Signs Reviewed: Yes Abd Pain Female Course/Dx - Course Course Of Treatment: 23-year-old female presents with 4 day history of left lower quadrant pain. States pain is sharp and constant. Radiates around her left flank to her back. Worsens with touch and movement. Patient states that she self treated for a vaginal yeast infection 2 weeks ago with a cream that had been prescribed to her in the past. Symptoms did subside however she has started noticing a discharge again since the onset of pain however denies any vaginal itching at this time. Reports history of both ovarian cyst and kidney stone the past. Patient has IUD and does not get her menses. Patient is sexually active with multiple male partners. States she was last tested for STIs in April 2019. She has had 2 or 3 different partners since that time. Denies fever, chills, nausea, vomiting, diarrhea, dysuria, frequency, urgency, hematuria, or dyspareunia. - Differential Dx/Diagnosis Differential Diagnosis: Ectopic , Ovarian Cyst, Pelvic Inflammatory Disease, , Renal Colic, Urinary Tract Infection, Other - Shingles Provider Diagnosis: Left lower quadrant pain, Vaginal discharge Discharge ED - Sign-Out/Discharge Documenting (check all that apply): Patient Departure All imaging exams completed and their final reports reviewed: No Studies - Discharge Plan Condition: Stable Disposition: HOME Prescriptions: Fluconazole 150 MG TAB* [Diflucan 150 MG TAB*] 150 mg PO ONCE #2 tablet Patient Education Materials: Safe Sex (ED), Yeast Infection (ED), Acute Abdominal Pain (ED) Referrals: Pradeep Lopez MD [Primary Care Provider] - 3 Days Additional Instructions: The urine test performed in the clinic today showed no evidence of a urinary tract infection. There was also no blood noted in the urine which makes today likelihood of a kidney stone unlikely. The urine was negative. Based on your history, risk factors, and exam we we will screen you for a possible sexually transmitted infection including gonorrhea, chlamydia, and trichomonas. We will also be testing for a possible yeast infection as well as for bacterial vaginosis. You received ceftriaxone and azithromycin in the clinic to treat you for a possible infection with gonorrhea or chlamydia. Should your testing come back positive for either of these infections no further treatment would be necessary. You should abstain from all sexual intercourse for the next week. Take Diflucan 150 mg today and then you may repeat again in 1 day should symptoms persist. You have elected not to have an ultrasound performed at this time to evaluate for a ovarian cyst. Please contact your primary care provider or EMERGENCY OPERATOR tomorrow to discuss having this scheduled as an outpatient. You should follow-up with your primary care provider or EMERGENCY OPERATOR within 3 days especially if your symptoms persist. Seek immediate medical attention in the emergency room if you develop fever greater than 100.5 F, have worsening abdominal pain, persistent vomiting, or any worsening of symptoms. - Billing Disposition and Condition Condition: STABLE Disposition: Home
[2019-08-18] MEDS ORDERED: Azithromycin TAB* 250 MG PO ONE (18:48)
[2019-08-18] MEDS ORDERED: cefTRIAXone VIAL(*) 250 MG VIAL IM ONE (18:48)
[2019-08-18] MEDS ORDERED: Lidocaine 1% MPF ** 5 ML VIAL IM ONE (18:48)
[2019-08-20 13:49] LABS: Trichomonas vag NAA Female Negative (Negative)
[2019-08-20 13:54] LABS: Chlamydia trachomatis NAA Negative (Negative); Neisseria gonorrhoeae (GC) NAA Negative (Negative)
== END 2019-08-18 19:05 | disposition home or self-care (01) ==
LOC: UCEAST 17:31
DX: R10.32 Left lower quadrant pain (principal); N89.8 Other specified noninflammatory disorders of vagina; F31.9 Bipolar disorder, unspecified; F90.9 Attention-deficit hyperactivity disorder, unspecified type; Z87.81 Personal history of (healed) traumatic fracture; Z97.5 Presence of (intrauterine) contraceptive device; Z88.8 Allergy status to other drugs, medicaments and biological substances
CPT/HCPCS: 81003; 84702; 87480; 87491; 87510; 87591; 87661; 96372; 99212; A9270-GY; G0463; J0696

== ENCOUNTER 2019-10-21 13:02 | Emergency (ER) | payer OTHER ==
--- OUTSIDE RECORDS SUMMARY | 2019-10-21 13:19 | XMS REPORT ---
:1995 Author Organization [facility]- [facility] Care Team Providers Name Role Phone SOURAV CACERES Primary Care Physician Unavailable Allergies, Adverse Reactions, Alerts Allergy Code CodeSystem Reaction Severity Criticality Status Start Substance Date Moderate Medications Medication Medication Medication Start Stop Route Dose Status Fill Code CodeSystem Date Date Instructions dextroamphet 770102 RxNorm 2018-09- oral 20 mg completed for 30 amine-amphet -22 04-26 capsule, day(s) amine extended release 24hr Lamictal [id number] RxNorm 2019-03- oral 25 mg active for 30 -20 11-19 tablet day(s) dextroamphet [id number] RxNorm 2018-11- oral 20 mg completed for 30 amine-amphet -24 06-28 capsule, day(s) amine extended release 24hr dextroamphet [id number] RxNorm 2018-12- oral 20 mg completed for 30 amine-amphet -28 07-28 capsule, day(s) amine extended release 24hr dextroamphet [id number] RxNorm 2018-10- oral 20 mg completed for 30 amine-amphet -26 05-24 capsule, day(s) amine extended release 24hr dextroamphet [id number] RxNorm 2019-02- oral 20 mg completed for 30 amine-amphet -19 09-18 tablet day(s) amine dextroamphet [id number] RxNorm 2019-03- oral 20 mg active for 30 amine-amphet -19 10-19 capsule, day(s) amine extended release 24hr dextroamphet [id number] RxNorm 2018-12- oral 20 mg completed for 30 amine-amphet -28 08-19 capsule, day(s) amine extended release 24hr dextroamphet [id number] RxNorm 2019-03- oral 20 mg active for 30 amine-amphet -19 10-19 tablet day(s) amine dextroamphet [id number] RxNorm 2019-02- oral 20 mg completed for 30 amine-amphet -19 -18 capsule, day(s) amine extended release 24hr dextroamphet [id number] RxNorm 2019-02- oral 20 mg completed for 30 amine-amphet -19 -19 tablet day(s) amine divalproex [id number] RxNorm 2018-09- oral 250 mg completed for 30 -22 -26 tablet,d day(s) elayed release (DR/EC) dextroamphet [id number] RxNorm 2018-10- oral 20 mg completed for 30 amine-amphet -26 05-24 tablet day(s) amine dextroamphet [id number] RxNorm 2019-02- oral 20 mg completed for 30 amine-amphet -19 -19 capsule, day(s) amine extended release 24hr dextroamphet [id number] RxNorm 2018-11- oral 20 mg completed for 30 amine-amphet -24 06-23 capsule, day(s) amine extended release 24hr dextroamphet [id number] RxNorm 2018-11- oral 20 mg completed for 30 amine-amphet -24 06-23 tablet day(s) amine dextroamphet [id number] RxNorm 2018-10- oral 20 mg completed for 30 amine-amphet -26 -28 tablet day(s) amine dextroamphet [id number] RxNorm 2018-09- oral 20 mg completed for 30 amine-amphet -22 - tablet day(s) amine dextroamphet [id number] RxNorm 2018-12- oral 20 mg completed for 30 amine-amphet -28 -28 tablet day(s) amine divalproex [id number] RxNorm 2019-03- oral 500 mg 2 active 2 tablet -20 12-19 tablet,d once a day elayed for 30 day(s) release (DR/EC) once a day dextroamphet [id number] RxNorm 2018-12- oral 20 mg completed for 30 amine-amphet -28 08- tablet day(s) amine divalproex [id number] RxNorm 2018-10- oral 500 mg 2 completed 2 tablet -26 - tablet,d once a day elayed for 30 day(s) release (/EC) once a day Problems Problem Name Code CodeSystem Alternate Alternate Start End Status Narrative Code CodeSystem Date Date Bipolar II 57497771 SNOMED-CT 2018- Active disorder 3- Bipolar II 89299199 SNOMED-CT 2018- Active disorder 3- Disturbance 23755826 SNOMED-CT 2018-07 Active of activity 0-03 and attention Relevant diagnostic tests/laboratory data Narrative No Information Procedures Procedure Code CodeSystem Target Date of Status Service Device Device Device Name Site Procedure Delivery Code Name UID Location Office or [id number] SNOMED-CT () 2018-11-06 complete Mental other 7 d Health- outpatient Kay visit for [address], established [id number] patient, [id number] which requires at least 2 of these 3 espinal components: An expanded problem focused history; An expanded problem focused examination; Medical decision making of low Office or [id number] SNOMED-CT () 2019-04-02 complete Mental other 7 d Health- outpatient Amaris visit for [address], established [id number] patient, [id number] which requires at least 2 of these 3 espinal components: An expanded problem focused history; An expanded problem focused examination; Medical decision making of low Office or [id number] SNOMED-CT () 2019-04-15 complete Mental other 7 d Health- outpatient Kay visit for [address], established [id number] patient, [id number] which requires at least 2 of these 3 espinal components: An expanded problem focused history; An expanded problem focused examination; Medical decision making of low Psychotherap [id number] SNOMED-CT () 2019-08-05 complete Mental y, 45 04 d Health- minutes with Kay patient [address], [id number] [id number] SNOMED-CT () 2019-06-04 complete Mental d Health- Amaris [address], [id number] SNOMED-CT () 2019-04-13 complete Mental d Health- Kay [address], [id number] [id number] Office or [id number] SNOMED-CT () 2019-06-09 complete Mental other 7 d Health- outpatient Kay visit for [address] [place], established [id number] patient, [id number] which requires at least 2 of these 3 espinal components: An expanded problem focused history; An expanded problem focused examination; Medical decision making of low Psychotherap [id number] SNOMED-CT () 2019-04-12 complete Mental y, 45 04 d Health- minutes with Amaris patient [address], [id number] [id number] Psychotherap [id number] SNOMED-CT () 2019-05-19 complete Mental y, 45 04 d Health- minutes with Kay patient [address], [id number] [id number] Psychotherap [id number] SNOMED-CT () 2019-06-30 complete Mental y, 45 04 d Health- minutes with Kay patient [address], [id number] [phone] Office or [id number] SNOMED-CT () 2019-08-11 complete Mental other 7 d Health- outpatient Kay visit for [address] [place], established [id number] patient, [id number] which requires at least 2 of these 3 espinal components: An expanded problem focused history; An expanded problem focused examination; Medical decision making of low Psychotherap [id number] SNOMED-CT () 2019-02-25 complete Mental y, 45 04 d Health- minutes with Amaris patient [address], [id number] Psychotherap [id number] SNOMED-CT () 2018-10-26 complete Mental y, 45 04 d Health- minutes with Amaris patient [address], [id number] [id number] SNOMED-CT () 2018-10-30 complete Mental d Health- Am[place] [address], [id number] [id number] Psychotherap [id number] SNOMED-CT () 2019-07-26 complete Mental y, 45 04 d Health- minutes with Kay patient [address], [id number] [phone] Psychotherap [id number] SNOMED-CT () 2018-12-31 complete Mental y, 45 04 d Health- minutes with Kay patient [address], [id number] [id number] SNOMED-CT () 2018-12-16 complete Mental d Health- [address], [id number] [id number] Office or [id number] SNOMED-CT () 2019-05-05 complete Mental other 7 d Health- outpatient Kay visit for [address], [facility], of [place], established [id number] patient, [id number] which requires at least 2 of these 3 espinal components: An expanded problem focused history; An expanded problem focused examination; Medical decision making of low Psychotherap [id number] SNOMED-CT () 2019-05-03 complete Mental y, 45 04 d Health- minutes with Kay patient [address], [id number] [phone] Psychotherap [id number] SNOMED-CT () 2018-11-10 complete Mental y, 45 04 d Health- minutes with Amaris patient [address], [id number] [phone] Psychotherap [id number] SNOMED-CT () 2019-06-16 complete Mental y, 45 04 d Health- minutes with Kay patient [address], [id number] [phone] Psychotherap [id number] SNOMED-CT () 2019-01-22 complete Mental y, 45 04 d Health- minutes with Amaris patient [address], [id number] [phone] Psychotherap [id number] SNOMED-CT () 2019-04-21 complete Mental y, 45 04 d Health- minutes with Kay patient [address], [id number] [phone] Encounters/Encounter Diagnoses Encounter Encounter Diagnosis Diagnosis Diagnosis Date of Service Name Code Code Name CodeSystem Diagnosis Delivery Location Non-Billable [id number] Bipolar II SNOMED-CT 2019-08-17 [facility] , , , Vital Signs No Information Social History Element Description Description Start End Code CodeSystem AdditionalInfo Date Date SexAssignedAtBirth Female F AdministrativeGender 12-17 Hospital Discharge Instructions Reason For Referral Medical Equipment FDA Assessments
--- OUTSIDE RECORDS SUMMARY | 2019-10-21 13:19 | XMS REPORT | Continuity of Care Document ---
:1995 External Reference #:[id number] Author Name Pradeep Louis MD Address [address] [place] [address] Problems Active Problems Provider Date Eruption Pradeep Lopez M.D. Onset: 05/22/2011 Candidal vulvovaginitis Pradeep Lopez M.D. Onset: 05/22/2011 Multiple joint pain Pradeep Lopez M.D. Onset: 06/24/2011 Acute pharyngitis Ady Oneil M.D. Onset: 05/11/2012 Malaise and fatigue Ady Oneil M.D. Onset: 05/26/2012 Anxiety state Pradeep Lopez M.D. Onset: 08/29/2015 Low back pain Pradeep Lopez M.D. Onset: 11/15/2016 Concussion with no loss of consciousness Pradeep Lopez M.D. Onset: 11/15 Neck pain Pradeep Lopez M.D. Onset: 11/22/2016 Headache Pradeep Lopez M.D. Onset: 01/06/2017 Major depressive disorder, single episode, Pradeep Lopez M.D. Onset: unspecified Social History Type Date Description Comments Sex Unknown Tobacco Use Start: Unknown Nonsmoker Tobacco Use Start: Unknown Nonsmoker Tobacco Use Start: Unknown Vaping uses nolan Smoking Status Reviewed: 11/04/18 Vaping uses nolan Allergies, Adverse Reactions, Alerts Active Allergies Reaction Severity Comments Date Valium MAKES JUMPY, JITTERY 01/07/2018 Benadryl FEELS JUMPY, JITTERY 01/07/2018 Inactive Allergies NKDA 02/11/2011 Medications Active Medications SIG Qnty Indications Ordering Provider Date Sulfamethoxazole/Trim twice a day 14tabs Pradeep Molina 09/03/2019 ethoprim DS MD Missy 800-160mg Tablets Fluconazole one weekly as 3tabs Pradeep Molina 09/03/2019 150mg needed. MD Missy Tablets Ondansetron HCL take one by mouth 20tabs R11.0 Emre ASalomon Plummer, 11/04/2018 4mg every 6 hours as M.D. Tablets needed for vomiting Fluconazole Take 1 pill at 2tabs N39.0 Emre LindaSalomon Plummer, 11/04/2018 150mg the start of M.D. Tablets antibiotics, 1 tablet 72 hours later, and the 3rd tablet 72 hours after that. Sumatriptan Succinate use for migraine 9tabs Emre Plummer, 09/10/2017 repeat in 2 M.D. 50mg Tablets hours, no more than 9 tabs per month Mirena (52 MG) 07/2017 Unknown 20mcg/24HR IUD Amphetamine-Dextroamp 1 by mouth qd Unknown het ER 20mg Caps ER 24HR Iron (Ferrous Unknown Sulfate) 142(45Fe) mg Tablets ER Fish Oil 1 qd Unknown Capsules Adderall 1/2 -1 po prn Unknown 20mg Tablets Depakote 1 tid Unknown 250mg Tablets DR Medications Administered in Office Medication SIG Qnty Indications Ordering Provider Date Brief Emotional/Behav BLANCA Vitale 10/28/2017 Assessment W/ Scoring Doc Per Standard Inst Injection Immunizations CPT Code Status Date Vaccine Lot # [id number] Given 11/19/2012 Meningococcal Conjugate Vaccine,Serogroups For [id number] Intramuscular Use 92431 Given 05/03/2010 Varicella (Chicken Pox) Immunization [id number] 53311 Given 05/03/2010 DO Not Use Split Influenza Virus Vaccine [id number] 18093 Given 03/14/2009 Tdap Tetanus, W Pertussis [id number] 38553 Given 08/02/2008 Gardasil vacine typs 6,11,16,18 3 dose schedule [id number] 83516 Given 04/28/2008 Gardasil vacine typs 6,11,16,18 3 dose schedule [id number] 35892 Given 01/26/2008 Gardasil vacine typs 6,11,16,18 3 dose schedule [id number] 50635 Given 12/24/2006 Meningococcal Conjugate Vaccine,Serogroups For [id number] Intramuscular Use 84348 Given 12/26/1999 IPV Inactive Poliovirus Vaccine 47467 Given 12/26/1999 MMR Virus Immunization 98679 Given 12/26/1999 DTaP Immunization 67196 Given 02/03/1997 Varicella (Chicken Pox) Immunization 35563 Given 07/28/1996 (Hib) Hemoplilus Influenza B 56942 Given 07/28/1996 DTaP Immunization 97315 Given 07/28/1996 Oral Poliovirus Immunization 34917 Given 03/23/1996 MMR Virus Immunization 26232 Given 09/30/1995 Hepatitis B Immunization, -19 Years 40113 Given 07/03/1995 Oral Poliovirus Immunization 47725 Given 07/03/1995 DTaP Immunization 93409 Given 07/03/1995 (Hib) Hemoplilus Influenza B 23570 Given 04/21/1995 Hepatitis B Immunization, -19 Years 45275 Given 04/21/1995 Oral Poliovirus Immunization 04496 Given 04/21/1995 DTaP Immunization 88137 Given 04/21/1995 (Hib) Hemoplilus Influenza B 81220 Given 02/26/1995 Hepatitis B Immunization, [place]-19 Years 82920 Given 02/26/1995 Oral Poliovirus Immunization 61144 Given 02/26/1995 DTaP Immunization 96421 Given 02/26/1995 (Hib) Hemoplilus Influenza B Vital Signs Date Vital Result Comment 09/03/2019 4:45pm BP Systolic 92 mmHg BP Diastolic 54 mmHg Heart Rate 72 /min Body Temperature 98.1 F Respiratory Rate 15 /min Weight 104.00 lb 11/04/2018 12:45pm BP Systolic 110 mmHg BP Diastolic 70 mmHg Heart Rate 68 /min Body Temperature 98.1 F Weight 105.00 lb Results Test Acquired Date Facility Test Result H/L Range Note Ua - Micro 09/03/2019 family medicine Appearance chromagenic int (Fma) (607)- - Color <pending> Glucose, Urine (Fma/CMC/CTX) <pending> Bilirubin <pending> Ketones <pending> SP Grav <pending> Blood <pending> PH <pending> Protein <pending> Urobil <pending> Nitrite <pending> Leukocytes (Fma/CMC/Centrex) <pending> Hyaline <pending> /Lpf Granular <pending> /Lpf WBC (Fma,Centrex) >50 RBC 1-2 Mucus (Fma/CBC/Centrex) - /Lpf Epith small amt /Lpf Bacteria 1+ /Hpf Amorphous (Fma/CMC/Centrex) - /Lpf Crystals, Fluid (Fma/CMC/CTX) - Z#Comments <pending> Laboratory test 08/18/2019 [facility] Gardnerella/Yeast: Vaginal SEE RESULT 1 , 2 finding Dna BELOW GC/Chlamydia 08/18/2019 [facility] GCCHL Disclaimer (SEE NOTE) 3 Amplified Rna Chlamydia trachomatis Dipika Negative Negative Neisseria gonorrhoeae (GC) Dipika Negative Negative Laboratory test finding 08/18/2019 [facility] Trichomonas Vaginalis Negative Negative 4 Rna Laboratory test finding 08/18/2019 [facility] Poc , Urine Negative Negative 5 Poc Urinalysis 08/18/2019 [facility] Poc Glucose, Urine NEGATIVE Negative Poc Bilirubin, Urine NEGATIVE Negative Poc Ketone, Urine NEGATIVE Negative Poc Specific [place], Urine 1.020 Normal 1.010-1.030 Poc Blood, Urine NEGATIVE Negative 6 Poc pH, Urine 7.0 Normal 5-9 Poc Protein, Urine NEGATIVE Negative Poc Urobilinogen, Urine 0.2 Negative Poc Nitrite, Urine NEGATIVE Negative Poc Leukocytes, Urine NEGATIVE Negative Poc Color, Urine YELLOW Poc Clarity, Urine CLEAR 1 [id number] SEE RESULT BELOW Name: SAUD MOSQUERA : [address]: Rodney Lim MD Acct: [id number] Unit: [id number] AGE: 23 Location: [facility] Re08/18/19 SEX: F Status: DEP ER SPEC: [id number] BRITTNEY: 08/18/19-[address] [facility] [address]: Mainor Bagley NP REQ: [id number] RECD: 08/19/19 STATUS: PILY COE DR: Pradeep Lim MD _ SOURCE: VAGINAL SPDESC: ORDERED: Chago,Yeast DNA COMMENTS: [id number] Would you like to order Trichomonas Vaginalis RNA testing? Y Procedure Result Reported Site Gardnerella/Yeast: Vaginal DNA Final 08/19/19- 1305 ML Organism 1 Negative Gardnerella Organism 2 POSITIVE AMIE The presence of G. vaginalis, although suggestive, is not diagnostic for bacterial vaginosis. Results should be interpreted in conjuction with other clinical and laboratory data available. [...] The presence or absence of Amie species, or G. vaginalis cannot be used as a test for therapeutic success or failure. CONTINUED ON NEXT PAGE DEPARTMENT OF PATHOLOGY, [address] [place] [address] Jam Dominguez M.D. Director [facility] # [id number] Specimen: [id number] Collected: 08/18/19 Received: 08/19/19-1101 (Continued) Procedure Result Reported Site Gardnerella/Yeast: Vaginal DNA Final (continued) 08/19/19- 1305 * ML - Main Lab . END OF REPORT DEPARTMENT OF PATHOLOGY, [address] [place] [address] Jam Dominguez M.D. Director [facility] # [id number] 3 As with all diagnostic procedures, the laboratory results obtained should be used in conjunction with other clinical information available to the physician, including confirmation by another method, as applicable. 4 As with all diagnostic procedures, the laboratory results obtained should be used in conjunction with other clinical information available to the physician, including confirmation by another method, as applicable. 5 Roller Maker: [id number] Test Disclaimer: Positive bacteria, red blood cells, white blood cells, early , low specific gravity, and other factors may cause false positive or negative results. It is recommended to retest unexpected and borderline results with a serum test when applicable. If is still suspected, please repeat test after 48 to 72 hours. 6 Roller Maker: [id number] Procedures Description No Information Available Medical Devices Description No Information Available Encounters Description No Information Available Assessments Date Code Description Provider 09/03/2019 N39.0 Urinary tract infection, site not specified Pradeep Louis MD Plan of Treatment 09/03/2019 - Pradeep Louis MDN39.0 Urinary tract infection, site not specifiedAllNew Medication:Sulfamethoxazole/Trimethoprim DS 800-160 mg - twice a dayFluconazole 150 mg - one weekly as needed.Comments:Medication Management Patient Understands medications she's taking? Yes No Are there Barriers to Adherence? Yes No Has the patient been asked about herbal supplements and therapies, and OTC meds? Yes No Functional Status Description No Information Available Mental Status Description No Information Available Referrals Description No Information Available
--- OUTSIDE RECORDS SUMMARY | 2019-10-21 13:19 | XMS REPORT | Continuity of Care Document ---
:1995 External Reference #:[id number] Author Name Shwetha Florentin, BLANCA Address [address] [place] [address] Problems Active Problems Provider Date Eruption Pradeep [...] Medications SIG Qnty Indications Ordering Provider Date Ciprofloxacin HCL 1 by mouth twice 10tabs R30.0 Shwetha 09/08/2019 500mg a day BLANCA Lerma Tablets Pyridium 1 by mouth three 90tabs R30.0 Shwetha 09/08/2019 100mg Tablets times a day as BLANCA Lerma needed urinary pain Fluconazole one weekly as 3tabs Pradeep Molina 09/03/2019 150mg Tablets needed. MD Missy Ondansetron HCL take one by 20tabs R11.0 Emre Plummer, 11/04/2018 4mg mouth every 6 M.D. Tablets hours as needed for vomiting Sumatriptan Succinate use for migraine 9tabs Emre Plummer, 09/10/2017 repeat in 2 M.D. 50mg Tablets hours, no more than 9 tabs per month Mirena (52 MG) 07/2017 Unknown 20mcg/24HR IUD Amphetamine-Dextroamph 1 by mouth qd Unknown et ER 20mg Caps ER 24HR Iron (Ferrous Sulfate) Unknown 142(45Fe) mg Tablets ER Fish Oil 1 qd Unknown Capsules Adderall 1/2 -1 po prn Unknown 20mg Tablets Depakote 1 tid Unknown 250mg Tablets DR Randall Medications Sulfamethoxazole/Trimethoprim DS twice a 14tabs Pradeep Molina 09/03/2019 - 800-160mg Tablets day MD Missy 09/08/2019 Medications Administered in Office Medication SIG Qnty Indications Ordering Provider Date Brief Emotional/Behav BLACNA Vitale 10/28/2017 Assessment W/ Scoring Doc Per Standard Inst Injection Immunizations CPT Code Status Date Vaccine Lot # [id number] Given 11/19/2012 Meningococcal Conjugate Vaccine,Serogroups For [id number] Intramuscular Use 98550 Given 05/03/2010 Varicella (Chicken Pox) Immunization [id number] 67983 Given 05/03/2010 DO Not Use Split Influenza Virus Vaccine [id number] 40186 Given 03/14/2009 Tdap Tetanus, W Pertussis [id number] 39319 Given 08/02/2008 Gardasil vacine typs 6,11,16,18 3 dose schedule [id number] 98377 Given 04/28/2008 Gardasil vacine typs 6,11,16,18 3 dose schedule [id number] 94907 Given 01/26/2008 Gardasil vacine typs 6,11,16,18 3 dose schedule [id number] 82074 Given 12/24/2006 Meningococcal Conjugate Vaccine,Serogroups For [id number] Intramuscular Use 07690 Given 12/26/1999 IPV Inactive Poliovirus Vaccine 50323 Given 12/26/1999 MMR Virus Immunization 22922 Given 12/26/1999 DTaP Immunization 59826 Given 02/03/1997 Varicella (Chicken Pox) Immunization 58502 Given 07/28/1996 (Hib) Hemoplilus Influenza B 22594 Given 07/28/1996 DTaP Immunization 45440 Given 07/28/1996 Oral Poliovirus Immunization 71093 Given 03/23/1996 MMR Virus Immunization 25597 Given 09/30/1995 Hepatitis B Immunization, -19 Years 16733 Given 07/03/1995 Oral Poliovirus Immunization 28563 Given 07/03/1995 DTaP Immunization 89911 Given 07/03/1995 (Hib) Hemoplilus Influenza B 75838 Given 04/21/1995 Hepatitis B Immunization, -19 Years 31211 Given 04/21/1995 Oral Poliovirus Immunization 59385 Given 04/21/1995 DTaP Immunization 20606 Given 04/21/1995 (Hib) Hemoplilus Influenza B 78362 Given 02/26/1995 Hepatitis B Immunization, [place]-19 Years 07808 Given 02/26/1995 Oral Poliovirus Immunization 85974 Given 02/26/1995 DTaP Immunization 31492 Given 02/26/1995 (Hib) Hemoplilus Influenza B Vital Signs Date Vital Result Comment 09/08/2019 3:54pm BP Systolic 90 mmHg BP Diastolic 48 mmHg Heart Rate 64 /min Body Temperature 98.4 F Respiratory Rate 16 /min Weight 108.12 lb shoes on 09/03/2019 4:45pm BP Systolic 92 mmHg BP Diastolic 54 mmHg Heart Rate 72 /min Body Temperature 98.1 F Respiratory Rate 15 /min Weight 104.00 lb Results Test Acquired Date Facility Test Result H/L Range Note Ua - Micro 09/03/2019 family medicine Appearance chromagenic int (Fma) (607)- - WBC (Fma,Centrex) >50 RBC 1-2 Mucus (Fma/CBC/Centrex) - /Lpf Epith small amt /Lpf Bacteria 1+ /Hpf Amorphous (Fma/CMC/Centrex) - /Lpf Crystals, Fluid (Fma/CMC/CTX) - Urine Culture And 09/03/2019 [facility] Urine Culture SEE RESULT BELOW 1, 2 Sensitivities Laboratory test finding 08/18/2019 [facility] Gardnerella/Yeast: SEE RESULT BELOW 3, 4 Vaginal Dna GC/Chlamydia Amplified 08/18/2019 [facility] GCCHL Disclaimer (SEE NOTE) 5 Rna Chlamydia trachomatis Dipika Negative Negative Neisseria gonorrhoeae (GC) Dipika Negative Negative Laboratory test finding 08/18/2019 [facility] Trichomonas Vaginalis Negative Negative 6 Rna Laboratory test finding 08/18/2019 [facility] Poc , Urine Negative Negative 7 Poc Urinalysis 08/18/2019 [facility] Poc Glucose, Urine NEGATIVE Negative Poc Bilirubin, Urine NEGATIVE Negative Poc Ketone, Urine NEGATIVE Negative Poc Specific [place], Urine 1.020 Normal 1.010-1.030 Poc Blood, Urine NEGATIVE Negative 8 Poc pH, Urine 7.0 Normal 5-9 Poc Protein, Urine NEGATIVE Negative Poc Urobilinogen, Urine 0.2 Negative Poc Nitrite, Urine NEGATIVE Negative Poc Leukocytes, Urine NEGATIVE Negative Poc Color, Urine YELLOW Poc Clarity, Urine CLEAR 1 [id number] SEE RESULT BELOW Name: SAUD MOSQUERA : [address]: Pradeep Louis MD Acct: [id number] Unit: [id number] AGE: 23 Location: [facility] Re09/03/19 SEX: F Status: REG REF SPEC: [id number] BRITTNEY: 09/03/19-[address]: Pradeep Louis MD REQ: [id number] RECD: 09/06/19 STATUS: COMP _ SOURCE: URINE SPDESC: ORDERED: Urine Culture COMMENTS: [id number] QUERIES: Urine Source: Random Procedure Result Reported Site Urine Culture Final 09/07/19- 1449 ML No Growth (<1,000 CFU/mL) * ML - Main Lab . END OF REPORT DEPARTMENT OF PATHOLOGY, [address] [place] [address] Jam Dominguez M.D. Director [facility] # [id number] SEE RESULT BELOW Name: SAUD MOSQUERA Dianna : [address]: Rodney Lim MD Acct: [id number] Unit: [id number] AGE: 23 Location: [facility] Re08/18/19 SEX: F Status: DEP ER SPEC: [id number] BRITTNEY: 08/18/19-1849 [facility] DR: Mainor Bagley NP REQ: [id number] RECD: 08/19/19-110 STATUS: PILY COE DR: Pradeep Lim MD _ SOURCE: VAGINAL SPDESC: ORDERED: Chago,Yeast DNA COMMENTS: [id number] Would you like to order Trichomonas Vaginalis [...] CONTINUED ON NEXT PAGE DEPARTMENT OF PATHOLOGY, [facility] [place] [address] Jam Dominguez M.D. Director [facility] # [id number] Specimen: [id number] Collected: 08/18/19 Received: 08/19/19 (Continued) Procedure Result Reported Site Gardnerella/Yeast: Vaginal DNA Final (continued) 08/19/19- 1305 * - Main Lab . END OF REPORT DEPARTMENT OF PATHOLOGY, [facility] [place], [place] [address] Jam Dominguez M.D. Director [facility] # [id number] 5 As with all diagnostic procedures, the laboratory results obtained should be used in conjunction with other clinical information available to the physician, including confirmation by another method, as applicable. 6 As with all diagnostic procedures, the laboratory results obtained should be used in conjunction with other clinical information available to the physician, including confirmation by another method, as applicable. 7 Dock Hand: [id number] Test Disclaimer: Positive bacteria, red blood cells, white blood cells, early , low specific gravity, and other factors may cause false positive or negative results. It is recommended to retest unexpected and borderline results with a serum test when applicable. If is still suspected, please repeat test after 48 to 72 hours. 8 Dock Hand: [id number] Procedures Description No Information Available Medical Devices Description No Information Available Encounters Type Date Location Provider Dx Diagnosis Office Visit 09/03/2019 Main Office Pradeep Molina N39.0 Urinary tract 4:40p MD Missy infection, site not specified Assessments Date Code Description Provider 09/08/2019 R30.0 Dysuria Shwetha Lerma, [facility] 09/08/2019 R11.0 Nausea Shwetha Lerma, [facility] 09/08/2019 N76.0 Acute vaginitis Shwetha Lerma, [facility] 09/03/2019 N39.0 Urinary tract infection, site not specified Pradeep Louis MD Plan of Treatment 09/08/2019 - Shwetha Lerma, FNPR30.0 DysuriaNew Medication:Ciprofloxacin HCL 500 mg - 1 by mouth twice a dayPyridium 100 mg - 1 by mouth three times a day as needed urinary painNew Labs:Ua - Non Micro (Fma), Ordered: 09/08/19Urine Culture & Sensitivity, Ordered: 09/08/19R11.0 NptcbrJ89.0 Acute vaginitis Functional Status Description No Information Available Mental Status Description No Information Available Referrals Refer to Reason for Referral Status Appt Date Blayne Mireles consult and treat recurrent uti's jw Sent [address] [place] [address] [place] [address] [phone]
--- NOTE | 2019-10-21 14:42 | ED ---
Syncope/Near Syncope - HPI Summary HPI Summary: 23 year old female presents with syncopal episode last night. She states 2 weeks ago she developed rash on bilateral hands. the rash has been intermittent since. She had the rash on bilateral hands last night. She then felt very flushed and had some tunnel vision and felt the little bit of shortness breath and ended up passing out. She came back and felt a little shortness breath. She denies any head injury. She was sitting in a chair when this happened. States that her rash became more flushed. She took an antihistamine afterwards with some improvement in the rash. She denies any new soaps or products. She states she may have been exposed to cleaning material at work. She denies any cough. No fevers. No sore throat. no sinus congestion. No pain. No nausea and no vomiting. She does not have a family history of passing out. Has history of psoriasis. - History Of Current Complaint Chief Complaint: EDRashSkinAbscess Time Seen by Provider: 10/21/19 14:25 - Allergies/Home Medications Allergies/Adverse Reactions: Allergies Allergy/AdvReac Type Severity Reaction Status Date / Time diphenhydramine Allergy Unknown See Comment Verified 08/18/19 17:53 [From Benadryl] diazepam [From Valium] Allergy Twitching Verified 08/18/19 17:53 Home Medications: Home Medications Ibuprofen TAB* [Motrin TAB* 600 MG] 600 mg PO Q6H PRN #30 tab 09/03/17 [Rx Confirmed 10/21/19] Dextroamphetamine ER (Nf) 30 mg PO DAILY 10/21/19 [History Confirmed 10/21/19] Divalproex DR TAB(*) [Depakote DR(*)] 1,500 mg PO DAILY 10/21/19 [History Confirmed 10/21/19] PMH/Surg Hx/FS Hx/Imm Hx Endocrine/Hematology History: Denies: Hx Anticoagulant Therapy, Hx Blood Disorders, Hx Diabetes, Hx Thyroid Disease, Hx Anemia, Hx Unexplained Bleeding Cardiovascular History: Denies: Hx Aneurysm, Hx Hypertension, Hx Pacemaker/ICD Respiratory History: Denies: Hx Asthma, Hx Chronic Obstructive Pulmonary Disease (COPD) GI History: Denies: Hx Ulcer History: Reports: Other Problems/Disorders - Recurrent UTI Sensory History: Denies: Hx Hearing Aid Neurological History: Reports: Hx Migraine Psychiatric History: Reports: Hx Anxiety, Hx Depression Denies: Hx Panic Disorder - Surgical History Surgery Procedure, Year, and Place: tongue tied as a - had scar revision in 7th grade [employer]2 Infectious Disease History: No Infectious Disease History: Denies: Hx Hepatitis, Hx Human Immunodeficiency Virus (HIV), Traveled Outside the [place] in Last 30 Days - Family History Known Family History: Positive: Hypertension, Diabetes, Other - family hx of kidney stones Negative: Renal Disease, Respiratory Disease, Seizure Disorder - Social History Alcohol Use: Occasionally Alcohol Amount: 4-5 times/week Hx Substance Use: No Substance Use Type: Reports: Marijuana Substance Use Comment - Amount & Last Used: 12/29/18 Hx Tobacco Use: Yes Smoking Status (MU): Former Smoker Type: Cigarettes Amount Used/How Often: 4 CIG/DAY Have You Smoked in the Last Year: Yes Review of Systems Negative: Fever Negative: Chest Pain Negative: Shortness Of Breath Positive: Rash Positive: Syncope All Other Systems Reviewed And Are Negative: Yes Physical Exam Triage Information Reviewed: Yes Vital Signs On Initial Exam: Initial Vitals Temp Pulse Resp BP Pulse Ox 97.9 F 85 18 118/88 100 10/21/19 13:09 10/21/19 13:09 10/21/19 13:09 10/21/19 13:09 10/21/19 13:09 Vital Signs Reviewed: Yes Appearance: Positive: Well-Appearing Skin: Positive: Warm, Dry, Other - trace amount of urticaria Head/Face: Positive: Normal Head/Face Inspection Eyes: Positive: Normal, EOMI, LUIS ENRIQUE, Conjunctiva Clear ENT: Positive: Pharynx normal Respiratory/Lung Sounds: Positive: Clear to Auscultation, Breath Sounds Present Cardiovascular: Positive: Normal, RRR Abdomen Description: Positive: Nontender, Soft Bowel Sounds: Positive: Present Musculoskeletal: Positive: Normal Neurological: Positive: Normal Psychiatric: Positive: Normal Procedures - Sedation Patient Received Moderate/Deep Sedation with Procedure: No Diagnostics - Vital Signs Vital Signs Temp Pulse Resp BP Pulse Ox 10/21/19 13:09 97.9 F 85 18 118/88 100 - Laboratory Result Diagrams: 10/21/19 14:45 10/21/19 14:45 Lab Statement: Any lab studies that have been ordered have been reviewed, and results considered in the medical decision making process. - EKG No standard instances Cardiac Rate: NL EKG Rhythm: Sinus Rhythm Summary of EKG Findings: sinus rhythm Course/Dx Course Of Treatment: 23 year old female presents with syncopal episode last night. She states 2 weeks ago she developed rash on bilateral hands. the rash has been intermittent since. She had the rash on bilateral hands last night. She then felt very flushed and had some tunnel vision and felt the little bit of shortness breath and ended up passing out. She came back and felt a little shortness breath. She denies any head injury. She was sitting in a chair when this happened. States that her rash became more flushed. She took an antihistamine afterwards with some improvement in the rash. She denies any new soaps or products. She states she may have been exposed to cleaning material at work. She denies any cough. No fevers. No sore throat. no sinus congestion. No pain. No nausea and no vomiting. She does not have a family history of passing out. Has history of psoriasis. On exam trace amount of urticaria to hands. Lungs CTA. Pharynx normal. troponin zero. glucose 61. vitals not orthostatic. ekg sinus rhythm. discuss not finding reason for syncope here. rash is very mild could be allergic but do not think had anaphylatic reaction causing syncope. told follow up with primary. patient understand and agrees with plan. - Diagnoses Differential Diagnosis/HQI/PQRI: Positive: Dysrhythmia, Hypovolemia, Vasovagal Episode Provider Diagnoses: Syncope, Rash Discharge ED - Sign-Out/Discharge Documenting (check all that apply): Patient Departure - Discharge Plan Condition: Good Disposition: HOME Patient Education Materials: Syncope (ED) Referrals: Pradeep Lopez MD [Primary Care Provider] - Additional Instructions: take Benadryl every 6 hours as needed for rash make sure to drink plenty of fluids and eat small snack throughout the day Follow up with primary within 5 days Return to ED if develop any new or worsening symptoms - Billing Disposition and Condition Condition: GOOD Disposition: Home - Attestation Statements Provider Attestation: I was available for consult. This patient was seen by the MARLENA. The patient was not presented to, seen by, or examined by me. -Kirstin
[2019-10-21 14:53] LABS: ABS Eosinophils 0.1 10^3/ul (0-0.6); ABS Lymphocytes 1.9 10^3/ul (1.0-4.8); ABS Monocytes 0.4 10^3/ul (0-0.8); ABS Neutrophils 3.1 10^3/ul (1.5-7.7); Eosinophil % 1.8 %; Hematocrit 38 % (35-47); Hemoglobin 13.5 g/dL (12.0-16.0); Mean Corpuscular HGB Conc 35 g/dL (31-36); Mean Corpuscular Hemoglobin 35 pg (27-31); Mean Corpuscular Volume 99 fL (80-97); Mean Platelet Volume 7.6 fL (7.4-10.4); Platelet Count 243 10^3/uL (150-450); Red Blood Count 3.85 10^6 /uL (3.70-4.87); Red Cell Distribution Width 13 % (10-15); White Blood Count 5.6 10^3/uL (3.5-10.8)
[2019-10-21 15:12] LABS: ALT 8 U/L (7-52); AST 15 U/L (13-39); Albumin 4.4 g/dL (3.2-5.2); Albumin/Globulin Ratio 1.8 (1-3); Alkaline Phosphatase 31 U/L (34-104); Anion Gap 7 mmol/L (2-11); BUN/Creatinine Ratio 17.3 (8-20); Blood Urea Nitrogen 14 mg/dL (6-24); CO2 Carbon Dioxide 27 mmol/L (22-32); Calcium 9.4 mg/dL (8.6-10.3); Chloride 104 mmol/L (101-111); EGFR African American 105.1 (>60); EGFR Non-African American 86.9 (>60); Globulin 2.5 g/dL (2-4); Glucose 61 mg/dL (70-100); Potassium 4.1 mmol/L (3.5-5.0); Sodium 138 mmol/L (135-145); Total Protein 6.9 g/dL (6.4-8.9)
[2019-10-21 15:18] LABS: HCG Pregnancy < 0.60 mIU/mL
[2019-10-21 15:55] LABS: Urine Appearance Cloudy; Urine Bilirubin Negative (Negative); Urine Blood Negative (Negative); Urine Color Yellow; Urine Glucose Negative (Negative); Urine Ketones Trace (Negative); Urine Nitrite Negative (Negative); Urine Protein Negative (Negative); Urine Specific Gravity 1.016 (1.010-1.030); Urine Urobilinogen Negative (Negative)
[2019-10-21 15:57] LABS: TSH (Thyroid Stimulating Horm) 1.88 mcIU/mL (0.34-5.60)
[2019-10-21 16:27] VITALS: BP 98/65
== END 2019-10-21 16:27 | disposition home or self-care (01) ==
LOC: ED 13:02
DX: R55 Syncope and collapse (principal); R21 Rash and other nonspecific skin eruption; Z87.891 Personal history of nicotine dependence; Z88.8 Allergy status to other drugs, medicaments and biological substances; Z79.899 Other long term (current) drug therapy
CPT/HCPCS: 36415; 80053; 81003; 83605; 83735; 84443; 84484; 84702; 85025; 93005; 99283